=== PATIENT | male | born 1975 | race African-American/Black ===

== ENCOUNTER 2022-05-25 14:53 | Emergency (ER) | payer SELFPAY ==
[2022-05-25 14:54] VITALS: BP 163/120; PULSE 63; RESP 16; TEMP 36.6; O2SAT 100; BMI 23.3
--- NOTE | 2022-05-25 15:12 | ED.RN ---
BRANCH FELL ON PT'S HEAD IN YARD. LOC. NO SENSE OF TIME OR WATCH TO DETERMINE LENGTH OF LOC. DIFFICULTY W/AMBULATION TO GET INTO HOUSE. FALLING FREQUENTLY. NEW ONSET GENERALIZED TREMORS. HEAD/NECK/ABD PAIN W/N/V AND DIZZINESS.
--- NOTE | 2022-05-25 15:13 | EX.ED.GENINJ ---
HPI History of Present Illness Chief Complaint: Head Injury Narrative Narrative: 46-year-old male here with head injury. States a tree limb hit him in the head. He lost consciousness and has been vomiting. Denies blood thinners. PFSH PFSH Medical History no medical history Home Medications pantoprazole 40 mg tablet,delayed release 40 mg PO DAILY ##30 04/27/15 [Rx Last Taken Unknown] hydrochlorothiazide 25 mg tablet 25 mg PO DAILY ##30 03/27/16 [Rx Last Taken Unknown] meclizine 25 mg tablet 25 mg PO TID PRN PRN Dizziness #15 tabs 03/27/16 [Rx Last Taken Unknown] ondansetron 4 mg disintegrating tablet 4 mg PO Q8H PRN PRN Nausea #10 tabs 05/25/22 [Rx Last Taken Unknown] Allergy/AdvReac Type Severity Reaction Status Date / Time No Known Allergies Allergy Verified 05/25/22 14:53 Surgical History no surgical history Social History Smoking Status: Former smoker ROS ROS ED ROS Narrative Constitutional: Denies fever HEENT: Denies sore throat Neck: Denies neck pain Cardiovascular: Denies chest pain, syncope Respiratory: Denies shortness of breath GI: Endorses nausea and vomiting : Denies changes in urinary habits Musculoskeletal: Denies muscle or joint pain Neurologic: Endorses dizziness, headache Skin denies rash EXAM Physical Exam Narrative Exam Narrative: Primary Survey Airway: Intact Breathing: Bilateral breath sounds Circulation: Palpable bilateral femorals, Palpable bilateral radial, Palpable bilateral DP and Palpable bilateral PT Disability / Spine precautions GCS Score: Eye Openin Verbal Response: 5 Motor Response: 6 Secondary Survey Constitutional: Please see MDM Head: Atraumatic, Midface stable, NO jaw malocclusion, No Cephalohematoma, and No Lacerations noted Eye: Pupils equal round and reactive to light, Extraocular muscles intact and No periorbital ecchymosis or stepoff, no evidence of entrapment ENT: Oropharynx clear, no lacerations, no hemotympanum, no raccoon eyes or hernandez sign Cervical spine / Neck: No cervical spine bony tenderness, crepitance, or stepoff deformity Trachea midline Lungs: Clear to auscultation, No asymmetric rise and No crepitus, no flail chest Cardiac: Regular rate and rhythm and No murmurs Abdomen: Soft, Nontender and No rebound Pelvis: Pelvis stable to compression : No evidence of genital injury Back: No midline bony tenderness to thoracic/lumbar/sacral spines Neuro: Alert and oriented x3, neuro exam at baseline, cranial nerves II through XII are intact. No pain with extraocular muscle movement. There is negative test of skew. Normal speech. 5 of 5 strength in upper and lower extremities in flexion extension. Intact sensation to light touch in upper and lower extremity dermatomes. No truncal or extremity ataxia. No dysdiadochokinesia. Normal gait. 2+ reflexes. No meningeal signs. Negative Babinski. NIH of 0 Extremities: NO gross Deformities Psych: Normal affect Nursing triage notes reviewed, Vital signs reviewed Const Vital Signs: 05/25/22 14:54 05/25/22 15:05 05/25/22 15:55 Temperature 97.8 F Temperature Source Temporal Pulse Rate 63 71 Respiratory Rate 16 18 Blood Pressure 163/120 H 133/106 H Blood Pressure Mean 134 115 Pulse Ox 100 100 Oxygen Delivery Method Room Air Room Air Room Air 05/25/22 16:08 Temperature Temperature Source Pulse Rate 73 Respiratory Rate 12 Blood Pressure 138/100 H Blood Pressure Mean 112 Pulse Ox 100 Oxygen Delivery Method Room Air MDM MDM MDM Narrative Medical decision making narrative: Chief Complaint: Head injury External records reviewed: Brain CT from 2017 shows no acute intracranial normalities I considered the following differential diagnosis: Intracranial injury, concussion, neck injury Imaging negative for acute traumatic injury patient is likely some from a concussion. Will give symptomatic Zofran for home-going and close head injury instructions. Factors affecting care: History of hypertension Social determinants of health: Tobacco use History obtained from others: None Shared decision making: I will have a discussion with the patient and or visitors regarding risk/benefits of further testing or admission. They will be made aware of of the risk/benefits inherent in this decision they will be given the opportunity to voice understanding. Consults: Radiology discussed read, reviewed over the read for second time Radiography Diagnostic Testing: Clinical Impression(s) from Imaging Studies Brain CT 05/25/22 15:40 IMPRESSION: Negative head/brain CT without intravenous contrast. Electronically Signed: Brayden Fuller MD at 15:57 EDT , Cervical Spine CT 05/25/22 15:40 IMPRESSION: Degenerative changes of the cervical spine. There are no acute findings. Electronically Signed: Brayden Fuller MD at 16:16 EDT , Treatment and Re-Evaluation Narrative: Tertiary exam without new traumatic injuries Discharge Plan Triage Chief Complaint: Head Injury ED Provider: Alex Tang Dx/Rx/DC Orders Clinical Impression: CHI (closed head injury) Instructions: After a Concussion Prescriptions: New ondansetron 4 mg tablet,disintegrating 4 mg PO Q8H PRN PRN (Reason: Nausea) Qty: 10 0RF No Action pantoprazole 40 MG tablet 40 mg PO DAILY Qty: 30 0RF hydrochlorothiazide 25 MG tablet 25 mg PO DAILY Qty: 30 0RF meclizine 25 MG tablet 25 mg PO TID PRN PRN (Reason: Dizziness) Qty: 15 0RF Stand Alone Forms: ED Work / School Excuse Primary Care Provider: Aj Colindres Referrals: Aj Colindres MD [Primary Care Provider] - Activity Restrictions/Additional Instructions: Please take Tylenol, ibuprofen every 6 hours as needed for fever and pain control. Please take Zofran as prescribed. Please return if cannot tolerate medicine by mouth or if you develop new or worsening symptoms. Disposition Disposition: Home, Self Care
[2022-05-25] MEDS: Ondansetron 4 MG/2 ML Vial IV (15:31)
--- NOTE | 2022-05-25 15:40 | CT_ITS ---
EXAM: CT SPINE - CERVICAL WITHOUT IV REASON FOR EXAM: Male, 46 years old. NECK PAIN neck trauma r/o c-spine injury HISTORY: NECK PAIN neck trauma r/o c-spine injury Individualized dose optimization techniques were used for this CT. TECHNIQUE: Multiplanar images were obtained of the cervical spine. IV contrast was not utilized. COMPARISON: None. FINDINGS: The vertebral bodies do maintain their height. The odontoid process is intact. No pre-vertebral soft tissue swelling is seen. The intravertebral disc height is lost. There are scattered lymph nodes in the neck. There are degenerative changes of the osseous structures. There is bilateral facet arthropathy. There are scattered levels of foraminal stenosis. There are vascular calcifications. CT/Spine Cervical without Contras IMPRESSION: Degenerative changes of the cervical spine. There are no acute findings. Electronically Signed: Brayden Fuller MD at 16:16 EDT Reading Location ID and State: [facility] / [place] , Service support ,
--- NOTE | 2022-05-25 15:40 | CT_ITS ---
EXAM: CT HEAD WITHOUT INTRAVENOUS CONTRAST CLINICAL INDICATION: head trauma, vomiting r/o ICH TECHNIQUE: Multiple axial images were obtained of the head without intravenous contrast. This CT exam was performed using one or more of the following dose reduction techniques: automated exposure control, adjustment of the mA and/or kV according to patient size, and/or use of iterative reconstruction technique. This report was created using [employer] report generation technology. RADIATION DOSE: CTDIvol = 44.99 mGy, DLP = 829.85 mGy-cm COMPARISON: 2.14.17. FINDINGS: BRAIN AND EXTRA-AXIAL SPACES: Unremarkable. No intra- or extra-axial hemorrhage. No evidence of acute infarct. No intracranial mass or mass effect. There is preservation of the hobbs/white matter interface. Posterior fossa structures are unremarkable. Ventricles are appropriate for age. No hydrocephalus. Basal cisterns are patent. BONES/JOINTS: Unremarkable. No discrete lytic or blastic abnormalities. SINUSES: Unremarkable as visualized. Clear. MASTOID AIR CELLS: Unremarkable. Clear. ORBITS: Visualized globes, extraocular muscles, optic nerves and retrobulbar fat appear unremarkable. CT/Brain/Head without Contrast IMPRESSION: Negative head/brain CT without intravenous contrast. Electronically Signed: Brayden Fuller MD at 15:57 EDT ,
[2022-05-25 15:55] VITALS: BP 133/106; PULSE 71; RESP 18; O2SAT 100
[2022-05-25 16:08] VITALS: BP 138/100; PULSE 73; RESP 12; O2SAT 100
[2022-05-25 16:53] VITALS: BP 135/100; PULSE 64; RESP 19; O2SAT 99
== END 2022-05-25 16:59 | disposition home or self-care (01) ==
PROVIDERS: Emergency Provider Emergency Medicine; PCP Family Medicine; Visit Provider Emergency Medicine
DX: S09.90XA Unspecified injury of head, initial encounter (principal); Z87.891 Personal history of nicotine dependence; I10 Essential (primary) hypertension; W22.8XXA Striking against or struck by other objects, initial encounter
CPT/HCPCS: 70450; 72125; 99284; J7030; J7040; A4216; J2405

== ENCOUNTER 2023-10-09 09:42 | Emergency (ER) | payer SELFPAY ==
[2023-10-09 09:42] VITALS: BP 107/84; PULSE 76; RESP 16; TEMP 36.4; O2SAT 100; BMI 22.4
--- NOTE | 2023-10-09 09:52 | EDS_ITS ---
HPI History of Present Illness Chief Complaint: Abd Pain PFSH PFSH Home Medications ?Medication ?Instructions ?Recorded ?Last Taken ?Type ondansetron 4 mg disintegrating 4 mg PO Q8H PRN PRN Nausea #10 tabs 10/09/23 Unknown Rx tablet Allergy/AdvReac Type Severity Reaction Status Date / Time No Known Allergies Allergy Verified 10/09/23 09:45 Social History Smoking Status: Former smoker EXAM Physical Exam Const Vital Signs: 10/09/23 09:42 10/09/23 11:42 Temperature 97.5 F L Temperature Source Temporal Pulse Rate 76 76 Respiratory Rate 16 18 Blood Pressure 107/84 H 110/77 Blood Pressure Mean 91 88 Pulse Ox 100 98 Oxygen Delivery Method Room Air Room Air MDM [facility] MDM Narrative Medical decision making narrative: HISTORY OF PRESENT ILLNESS: 48-year-old male presents with concern for abdominal pain diarrhea and generally not feeling well. He states this began yesterday and is covered by diarrhea. Notes 1 episode of nonbloody nonbilious vomitus prior to arrival. Denies history abdominal surgery. Denies any urinary complaint such as frequency urgency hematuria, dysuria. Last bowel movement was yesterday. No melena or hematochezia. No other bleeding diathesis noted. Denies sick contacts. Denies cough fever chills. No chest pain or shortness of breath. REVIEW OF SYSTEMS: Pertinent positives: Abdominal pain, diarrhea Pertinent negatives: As per HPI PHYSICAL EXAM: Nursing triage notes reviewed, Vital signs reviewed Constitutional: please see [facility] HENT: MMM Eyes: Pupils equal round and reactive to light, Extraocular muscles intact Neck: No stridor, no JVD, full neck ROM Lungs: Clear to auscultation, No wheezing or rales. No increased work of breathing, no conversational dyspnea, no accessory muscle use, no nasal flaring. No respiratory distress noted Heart: Regular rate and rhythm, No murmurs, No rubs and No gallops, 2+ distal pulses (radial, femoral, posterior tibial) in all extremities Abdomen: Soft, diffuse tenderness, rigidity, rebound or guarding, no obvious peritoneal signs, no palpable pulsatile abdominal masses, no auscultated abd ominal bruit : Left CVAT noted Extremities: No edema Neuro: No focal neurological deficits, cranial nerves II through XII intact, 5/5 strength in all extremities. Intact sensation to light touch in all extremities, 2+ reflexes bilateral patella tendons. Normal gait. No ataxia. Skin: No rash or lesions noted MEDICAL DECISION MAKING: Chief Complaint: Abdominal pain diarrhea External records reviewed: Prior imaging reviewed: No recent advanced imaging the abdomen or pelvis Factors affecting care: GERD Social determinants of health: Denies recent alcohol. Notes history of alcohol use 2 years ago. History obtained from others: Consults: none at this time MDM Narrative: Patient was initially hemodynamically stable, afebrile, saturating 100% on room air. Exam with diffusely tender abdomen and left CVA tenderness I considered the following differential diagnosis: Perforation, obstruction, acute appendicitis, pyelonephritis, UTI, nephrolithiasis, AAA, pancreatitis, hepatobiliary obstruction, I obtained a broad lab and imaging workup to further elucidate the etiology of patient's complaint specifically ruling out signs of acute surgical processes in the abdomen as well as signs of intra-abdominal organ dysfunction. I treated the patient initially 1 L normal saline for resuscitation, 4 mg of IV Zofran for nausea control, and 15 mg of IV Toradol for pain control. ALL IMAGES (IF OBTAINED) HAVE BEEN PERSONALLY REVIEWED AND INTERPRETED BY MYSELF. CBC without leukocytosis, severe anemia, no thrombocytopenia. Lipase is wnl indicating no pancreatic inflammation. CMP without evidence of acute kidney injury, significant electrolyte abnormality, anion gap, no evidence hepatobiliary pathology. CT scan of the abdomen pelvis is negative for acute intra-abdominal pathology such as obstruction perforation does note liver cyst. Incidental findings communicated with the patient. The synthesis of the patient's history, physical exam, labs images suggest no acute life-limiting intra-abdominal pathology. I see nothing that would suggest an acute abdomen at this time. Based on history physical exam, risk factors, I have a low for acute surgical abdominal pathology, is very low. There is no evidence of peritonitis sepsis or toxicity at this time. I feel the patient can be managed as an outpatient with follow-up with her primary physician in the next 24 to 48 hours or soon as possible. Instructions have been given for the patient to return to the ED for worsening pain, anorexia, high fevers, intractable vomiting or bleeding. The patient and/or family, caregivers express understanding. The patient and/or family, caregivers agrees with the plan. Shared decision making: I will have a discussion with the patient and or visitors regarding risk/benefits of further testing or admission. They will be made aware of of the risk/benefits inherent in this decision they will be given the opportunity to voice understanding. Total critical care time today provided was at least 0 minutes. This excludes separately billable procedures. Critical care time (if documented) is secondary to the patient having high probability of clinically significant/life threatening deterioration in the patient's condition which required my urgent intervention. Impression: 1. Abdominal pain 2. Liver cyst Dispo: Discharge This note was generated with [employer] dictation software. It may contain incorrect words, spelling, and punctuation that were not noted in review of the chart prior to signing. Lab Data Labs: Laboratory Results - last 24 hr 10/09/23 10:15 WBC 8.3 RBC 5.10 Hgb 14.3 Hct 41.6 MCV 81.6 MCH 28.0 MCHC 34.4 RDW Std Deviation 41.4 RDW Coeff of Clary 14.3 Plt Count 233 MPV 9.4 Immature Gran % (Auto) 0.200 Neut % (Auto) 56.0 Lymph % (Auto) 29.0 Comal % (Auto) 11.6 H Eos % (Auto) 2.4 Baso % (Auto) 0.8 Absolute Neuts (auto) 4.7 Absolute Lymphs (auto) 2.41 Nucleated RBC % 0 Sodium 139 Potassium 4.4 Chloride 107 Carbon Dioxide 30.0 Anion Gap 2 L BUN 17 Creatinine 1.14 Estim Creat Clear Calc 76.29 Est GFR (MDRD) Af Amer 88 Est GFR (MDRD) Non-Af 73 BUN/Creatinine Ratio 14.9 Glucose 86 Calcium 9.3 Total Bilirubin 0.30 AST 18 ALT 7 L Alkaline Phosphatase 93 Total Protein 7.5 Albumin 3.4 Globulin 4.1 Albumin/Globulin Ratio 0.8 L Lipase 46 Radiography Diagnostic Testing: Clinical Impression(s) from Imaging Studies Abdomen/Pelvis CT 10/09/23 10:05 IMPRESSION: Diffuse bladder wall thickening. Findings suggesting a 1.3 cm cyst in the inferior medial aspect of the right lobe of the liver. Sigmoid diverticulosis. Electronically Signed: Mike Penaloza MD at 12:13 EDT , Discharge Plan Triage Chief Complaint: Abd Pain ED Provider: Alex Tang Dx/Rx/DC Orders Clinical Impression: Abdominal pain Instructions: ED Abdominal Pain Unkn Cause Male... Prescriptions: New ondansetron 4 mg tablet,disintegrating 4 mg PO Q8H PRN PRN (Reason: Nausea) Qty: 10 0RF Primary Care Provider: Aj Colindres Referrals: Aj Colindrse MD [Primary Care Provider] - Activity Restrictions/Additional Instructions: Thank you for trusting us with your care today! Your labs images were overall unremarkable. Your CT scan showed no evidence of any acute intra-abdominal pathology that would require surgery or hospitalization today. Please take Zofran as needed for nausea and vomiting. Please increase your oral fluid intake I recommend Body Armor, Pedialyte or Gatorade. Incidentally we found a cyst in your liver. This is unexplained at this time but will require repeat evaluation through your PCP with an ultrasound another CT scan to assess if it is changing or more concerning. Please take Tylenol (2 pills, 650 mg), ibuprofen (2 pills, 400 mg) every 6 hours as needed for pain and fever control. Please return to the emergency department if your symptoms change or worsen. Please follow with your primary care physician for further outpatient evaluation and management. Print Language: Uzbek Disposition Disposition: Home, Self Care
--- NOTE | 2023-10-09 10:05 | CT_ITS ---
STUDY: CT ABDOMEN AND PELVIS WITH CONTRAST REASON FOR EXAM: Male, 48 years old. Diffuse abdominal pain RADIATION DOSAGE (If Supplied By Facility): CTDIvol = ( 12.1 ) mGy, DLP = ( 368.48 ) mGycm TECHNIQUE: Transaxial images were obtained from the dome of the diaphragm to the symphysis pubis without oral contrast. IV 100mL Isovue-300 was administered. Sagittal and coronal images were reconstructed. Individualized dose optimization techniques were used for this CT. COMPARISON: Comparison is made with prior study of June 29, 2012. FINDINGS: Minimal degree of dependent bibasilar atelectasis. The visualized portions of the heart are within normal limits. There is a 1.3 cm cyst in the inferior medial aspect of the right lobe of the liver. Normal gallbladder and extrahepatic biliary system. Normal spleen. Normal pancreas. Normal bilateral adrenal glands. Normal right kidney. Normal left kidney. Normal visualized stomach. Normal small intestine. There are multiple colonic diverticula consistent with diverticulosis. The appendix is visualized and appears normal. Normal abdominal aorta. Normal inferior vena cava. Normal retroperitoneum. There is diffuse bladder wall thickening. Normal abdominal wall. Disc space narrowing and spondylosis at the L5-S1 level as well as at the L1-L2 level. CT/Abdomen/Pelvis W IV Cont ONLY IMPRESSION: Diffuse bladder wall thickening. Findings suggesting a 1.3 cm cyst in the inferior medial aspect of the right lobe of the liver. Sigmoid diverticulosis. Electronically Signed: Mike Penaloza MD at 12:13 EDT ,
[2023-10-09 10:25] LABS: Absolute Lymphocyte Count 2.41 X10^3/uL (0.83-4.51); Absolute Neutrophil Count 4.7 X10^3/uL (2.0-7.7); Basophil# 0.07 X10^3/uL; Basophil% 0.8 % (0-1); Eosinophils% 2.4 % (0-5); Hematocrit 41.6 % (40-54); Hemoglobin 14.3 g/dL (13.0-16.5); Lymphocyte # 2.41 X10^3/ul (0.83-4.51); Mean Corp Hgb Conc 34.4 g/dL (32-36); Mean Corpuscular Volume 81.6 fL (80-94); Mean Platelet Vol. 9.4 fl (6.2-12.0); Monocyte# 0.96 X10^3/uL; Monocyte% 11.6 % (0-10); NRBC Flagged by Analyzer 0 % (0-5); Neutrophil # 4.65 X10^3/uL (2.7-7.7); Platelet Count 233 K/mm3 (150-450); RBC Distribution Width CV 14.3 % (11.6-14.6); RBC Distribution Width SD 41.4 fl (35.1-43.9); White Blood Count 8.3 K/mm3 (4.4-11.0)
[2023-10-09] MEDS: Ondansetron 4 MG/2 ML Vial IV (10:27)
[2023-10-09] MEDS: Ketorolac 15 MG/ML Vial IV (10:27)
[2023-10-09] MEDS: 0.9% Normal Saline (1000mL) 1,000 ML 999 ML IV (10:27)
[2023-10-09 11:32] LABS: ALB/GLOB Ratio 0.8 RATIO (0.9-2.4); AST(SGOT) 18 U/L (15-37); Alanine Aminotransfer ALT/SGPT 7 U/L (16-61); Albumin, Serum 3.4 g/dL (3.2-5.0); Alkaline Phosphatase 93 U/L (45-117); Anion Gap 2 (5-15); BUN 17 mg/dL (7-18); BUN/Creat Ratio 14.9 RATIO (10-20); Calcium,Total 9.3 mg/dL (8.5-10.1); Chloride 107 mmol/L (98-107); Creatinine, Serum 1.14 mg/dL (0.70-1.30); EST Glomerular Filtration Rate 73 mL/min (>60); Est Glom Filt Rate - Afr Amer 88 mL/min (>60); Estimated Creatinine Clearance 76.29 ml/min; Globulin 4.1 g/dL (2.2-4.2); Glucose 86 mg/dL (74-106); Lipase 46 U/L (13-75); Potassium 4.4 mmol/L (3.5-5.1); Protein, Total 7.5 g/dL (6.4-8.2); Sodium Level 139 mmol/L (136-145)
[2023-10-09 11:42] VITALS: BP 110/77; PULSE 76; RESP 18; O2SAT 98
[2023-10-09 12:56] VITALS: BP 104/82; PULSE 71; RESP 18; TEMP 36.3; O2SAT 99
[2023-10-09 13:00] VITALS: BP 104/82; PULSE 71; RESP 18; O2SAT 98
== END 2023-10-09 13:12 | disposition home or self-care (01) ==
PROVIDERS: Emergency Provider Emergency Medicine; PCP Family Medicine; Visit Provider Emergency Medicine
DX: R10.9 Unspecified abdominal pain (principal); K76.89 Other specified diseases of liver; Z87.891 Personal history of nicotine dependence
CPT/HCPCS: 74177; 80053; 83690; 85025; 96361; 96374; 96375; 99283; J7030; Q9967; A4216; J2405

== ENCOUNTER 2023-10-11 22:53 | Emergency (ER) | payer SELFPAY ==
[2023-10-11 22:54] VITALS: BP 132/92; PULSE 66; RESP 15; TEMP 36.3; O2SAT 100; BMI 22.1
--- NOTE | 2023-10-11 23:46 | EDS_ITS ---
HPI History of Present Illness Chief Complaint: Eye Problem Informant: patient and spouse/S.O. Narrative Narrative: Patient has had 4 days of gradual onset redness and swelling of the left eye that started more temporally. Today he has developed gradual onset of headache, photophobia, and the feeling like there may be something in his eye. Some trouble focusing but no gross changes in vision or visual cristina. He wears no glasses or contacts. No fevers or chills. No purulent discharge. No URI symptoms recently. No injury to the eye that he knows of. [facility] Medical History Colitis Home Medications ?Medication ?Instructions ?Recorded ?Last Taken ?Type ondansetron 4 mg disintegrating 4 mg PO Q8H PRN PRN Nausea #10 tabs 10/09/23 Unknown Rx tablet ofloxacin 0.3 % eye drops See Rx Instructions EACH EYE 10/12/23 Unknown Rx .COMPLEX #5 mL Allergy/AdvReac Type Severity Reaction Status Date / Time No Known Allergies Allergy Verified 10/11/23 22:56 Family History no significant family his Social History household members: spouse Smoking Status: Former smoker ROS ROS ED Constitutional Constitutional ED: Denies chills or fever(s) Eyes Eyes: Reports as per HPI and eye pain ENT ENT ED: Denies ear pain, rhinorrhea or sore throat Gastrointestinal Gastrointestinal: Denies nausea or vomiting Neurologic Neurologic: Reports headache(s); Denies paresthesias or weakness EXAM Physical Exam Const Vital Signs: 10/11/23 22:54 Temperature 97.4 F L Temperature Source Temporal Pulse Rate 66 Respiratory Rate 15 Blood Pressure 132/92 H Blood Pressure Mean 105 Pulse Ox 100 Oxygen Delivery Method Room Air Positive well nourished and well developed General Appearance ED: well developed and NAD HEENT HEENT Narrative: Left eye: There is mild palpebral conjunctival swelling there is no periorbital swelling/tenderness to suggest preseptal cellulitis. There is significant photophobia with resultant blepharospasm limiting exam initially. There is diffuse scleral/conjunctival bulbar injection. No enophthalmos or proptosis. The right eye is unremarkable. atraumatic; Negative for tenderness Mouth ED: Yes oral and palatal mucosa normal and Yes lips normal Mouth: oral and palatal mucosa normal and lips normal Eyes PERRL and EOMs intact bilaterally Neuro oriented x3, CN's II-XII intact bilaterally and gait normal Sensorium / Orientation: alert Skin Lesions: no lesions Rashes: no rashes MDM MDM MDM Narrative Medical decision making narrative: Patient did have some significant improvement with tetracaine although not all the pain is gone. I checked eye pressures with a Bhanu-Pen, pressures measuring 26 with multiple checks less than 5% error. This is inconsistent with acute angle-closure glaucoma. I also did a slit-lamp exam. There is no hypopyon or hyphema the anterior chambers deep and quiet, stained with fluorescein negative Radha sign no dye uptake of the cornea or focal lesions or foreign bodies. He does have some mucus floating on the surface of the cornea that moves when he blinks, suggestive of an infection, but the rest of his symptoms in context of the above pressures are suggestive of iritis as well. Scleritis and episcleritis I think are in the differential as well. I think he needs follow- up with ophthalmology but it is Saturday night/Saturday morning of a holiday weekend. Therefore I discussed with the split and drum room supervisor on-call. He will see the patient in the morning at 9:30 AM. Management Discussion w/another healthcare provider: Fishing Tool Operator (ophtho Dr. Aguilar) Discharge Plan Triage Chief Complaint: Eye Problem ED Provider: Raúl Schaefer Dx/Rx/DC Orders Clinical Impression: Acute left eye pain Instructions: Red Eye Infection Tx, ED Iritis Prescriptions: New ofloxacin 0.3 % drops See Rx Instructions .ROUTE .COMPLEX Qty: 5 0RF Rx Instructions: put 1-2 drps into affected eye(s) every 2-4 h No Action ondansetron 4 mg tablet,disintegrating 4 mg PO Q8H PRN PRN (Reason: Nausea) Qty: 10 0RF Primary Care Provider: Aj Colindres Referrals: Aj Colindres MD [Primary Care Provider] - Stevie Aguilar MD [Med Staff - Active Staff] - 10/12/23 9:30 am Print Language: Ukrainian Disposition Disposition: Home, Self Care
[2023-10-12] MEDS: Tetracaine 0.5% Ophthalmic Bottle 2 DRP LEFT EYE (00:13)
[2023-10-12] MEDS: Fluorescein 1 MG STRIP 1 STRIP LEFT EYE (00:13)
== END 2023-10-12 02:34 | disposition home or self-care (01) ==
PROVIDERS: Emergency Provider Emergency Medicine; PCP Family Medicine; Visit Provider Emergency Medicine
DX: H57.12 Ocular pain, left eye (principal); Z87.891 Personal history of nicotine dependence
CPT/HCPCS: 99283

== ENCOUNTER 2024-07-17 09:05 | Emergency (ER) | payer SELFPAY ==
[2024-07-17 09:06] VITALS: BP 142/103; PULSE 93; RESP 14; TEMP 36.1; O2SAT 98; BMI 22.8
[2024-07-17] MEDS: Morphine 4 MG/ML Syringe IV (09:39)
[2024-07-17] MEDS: Ondansetron 4 MG/2 ML Vial IV (09:39)
[2024-07-17] MEDS: Ketorolac 15 MG/ML Vial IV (09:39)
[2024-07-17] MEDS: diazePAM 5 MG Tablet 2.5 MG PO (09:39)
--- NOTE | 2024-07-17 09:44 | EDS_ITS ---
HPI History of Present Illness Chief Complaint: Back Detail of Chief Complaint: Right lower back pain radiating to the groin and posterior mid thigh. Informant: patient and spouse/S.O. Onset/Context/Timing Onset: Weeks (Onset 2 to 3 weeks ago) Context: Sudden Onset Injury: - (Patient states pain started all of a sudden. He had not done any lifting bending etc.) Timing: Intermittent Quality: Aching Location: Lumbar, Buttock and Right Leg Current Severity: Moderate Maximum Severity: Severe Worsened by: improves with Movement, Ambulation and Bending Relieved by: Nothing Associated Symptoms Associated Symptoms: Radiation to Right Leg and - (He denies saddle paresthesia anesthesia. Denies buckling of his knees going up or down steps or dragging his foot when he ambulates.); Negative for Numbness, Tingling, Radiation to Left Leg, Fever, Abdominal Pain, Dysuria, Unable to Ambulate, Unable to Transfer, Urinary Retention, Urinary Incontinence, Constipation or Fecal Incontinence Narrative Narrative: Patient is a 49-year-old male. He presents because of worsening right lower back pain that radiates to the right inguinal area and posteriorly and stops before the popliteal fossa. Movement exacerbates his pain. Patient has been applying heat which has made it worse. He took [id number] back pain relief. According to it contains acetaminophen and ibuprofen. They do not know the doses of the acetaminophen or ibuprofen. Patient denies bowel bladder dysfunction. Patient [place] saddle paresthesia or an esthesia. Patient denies foot drop. Patient denies buckling of his knees going up or down steps. Movement exacerbates his pain. He had an appointment to see chiropractor. He states the pain was unbearable and presents to the emergency department. He denies recent dental procedure. Denies fever, chills or night sweats. Prior similar symptoms: No Recent Illness/[facility]: [facility] Medical History Colitis Home Medications ?Medication ?Instructions ?Recorded ?Last Taken ?Type ondansetron 4 mg disintegrating 4 mg PO Q8H PRN PRN Na usea #10 tabs 10/09/23 Unknown Rx tablet ciprofloxacin HCl 0.3 % eye drops See Rx Instructions EACH EYE 10/12/23 Unknown Rx .COMPLEX #5 mL Valium 2 mg tablet (diazepam) 2 mg PO TID PRN muscle s pasm 4 07/17/24 Unknown Rx days #10 tabs naproxen 500 mg tablet 500 mg PO BID #14 tabs 07/17 Unknown Rx oxycodone-acetaminophen 5 mg-325 1 tab PO Q6H PRN PRN Pain 3 days 07/17/24 Unknown Rx mg tablet #12 TABLETS Allergy/AdvReac Type Severity Reaction Status Date / Time No Known Allergies Allergy Verified 07/17/24 09:05 Social History household members: spouse Smoking Status: Former smoker ROS ROS ED Constitutional Constitutional ED: Denies chills, fever(s), subjective, sweats or weight loss Cardiovascular Cardiovascular: Denies chest pain or palpitations Respiratory/Chest Respiratory/Chest: Denies dyspnea or dyspnea on exertion Gastrointestinal Gastrointestinal: Denies abdominal pain, constipation, diarrhea, nausea or vomiting Genitourinary Genitourinary ED: Denies dysuria, hematuria or urinary frequency Musculoskeletal Musculoskeletal: Reports back pain Integumentary Denies rash Neurologic Neurologic: Denies weakness Hematologic/Lymphatic Hematologic/Lymphatic: Denies easy bleeding or easy bruising EXAM Physical Exam Const Vital Signs: 07/17/24 09:06 Temperature 96.9 F L Temperature Source Temporal Pulse Rate 93 Respiratory Rate 14 Blood Pressure 142/103 H Blood Pressure Mean 116 Pulse Ox 98 Oxygen Delivery Method Room Air Positive well nourished and well developed Constitutional Narrative: Patient appears uncomfortable. He has tears in his eyes. Blood pressure slightly elevated. He does not have history of hypertension. Suspect this is due to his pain. General Appearance ED: well developed; Negative for pallor HEENT HEENT Narrative: HEENT is grossly unremarkable. Eyes PERRL and EOMs intact bilaterally General Eye ED: Negative for pale conjunctiva or scleral icterus Neck no lymphadenopathy, supple and no JVD Resp normal respiratory effort and clear to auscultation bilaterally Cardio regular rate, regular rhythm, S1 normal heart sound, S2 normal heart sound and no murmurs GI normal to inspection, nondistended, normoactive bowel sounds, soft to palpation, non-tender, non-distended and no masses GI Narrative: There is no abdominal bruit or palpable or pulsatile mass. Inspection: Negative for abdominal distention Back/Spine Lumbar Spine / Lower Back: straight leg raise negative bilaterally Extremity normal to inspection and no clubbing, cyanosis or edema Neuro Neuro Narrative: Patient has abnormal sensation S1-L4 on the right side only. Deep Tendon Reflexes: Rt Patellar (L4): 2+, Lt Patellar (L4): 2+, Rt Ankle (S1): 2+ and Lt Ankle (S1): 2+ Deep Tendon Reflexes Back: Rt Patellar (L4): 2+, Lt Patellar (L4): 2+, Rt Ankle (S1): 2+ and Lt Ankle (S1): 2+ Plantar Reflex: Downgoing: bilateral (There is no clonus noted.) Psych mental status grossly normal Skin no rashes or lesions noted and no wounds General Skin Exam: Negative for jaundice or pallor MDM MDM MDM Narrative Medical decision making narrative: Patient's history and physical is not consistent with sciatica. With normal reflexes uncertain why patient has abnormal sensation S1-L4 on the right. There is no abnormal sensation L1. Patient has intact EHL. 5/5 plantar and dorsi flexion. Patient complained of pain with plantarflexion of his right foot. At this point he is unable to stand to have him ambulate and perform 1 legged squat right and left. Therefore will medicate patient and reassess in ambulate after appropriate pain control. Patient is able to move more freely. He still has some discomfort. Patient was able to stand. Gait was observed. He has no foot drop. He is able to perform 1 legged squat on the right side. In my opinion this is muscular pain. He was told he may have a herniated disc but that is not the cause of his pain at this time based on his history, physical findings. Treatment and Re-Evaluation Narrative: Documented under the MDM portion of the medical record Discharge Plan Triage Chief Complaint: Back ED Provider: Ramón Holman Dx/Rx/DC Orders Clinical Impression: Acute right-sided low back pain, Tobacco dependence, Elevated blood-pressure reading without diagnosis of hypertension Instructions: ED Back Pain (Acute or Chronic) Prescriptions: New oxycodone-acetaminophen 5-325 mg tablet 1 tab PO Q6H PRN PRN (Reason: Pain) 3 Days Qty: 12 0RF naproxen 500 mg tablet 500 mg PO BID Qty: 14 0RF diazepam [Valium] 2 mg tablet 2 mg PO TID PRN (Reason: muscle spasm) 4 Days Qty: 10 0RF No Action ciprofloxacin HCl 0.3 % drops See Rx Instructions .ROUTE .COMPLEX Qty: 5 0RF Rx Instructions: put 1-2 drps in affected eye(s) every 2hr up to 8 times/day ondansetron 4 mg tablet,disintegrating 4 mg PO Q8H PRN PRN (Reason: Nausea) Qty: 10 0RF Primary Care Provider: Aj Colindres Referrals: Aj Colindres MD [Primary Care Provider] - Print Language: Luxembourgish Disposition Disposition: Home, Self Care
[2024-07-17 10:32] VITALS: BP 132/94; PULSE 89; RESP 16; TEMP 36.4; O2SAT 99
== END 2024-07-17 10:33 | disposition home or self-care (01) ==
PROVIDERS: Emergency Provider Emergency Medicine; PCP Family Medicine; Visit Provider Emergency Medicine
DX: M54.50 Low back pain, unspecified (principal); R03.0 Elevated blood-pressure reading, without diagnosis of hypertension; M79.671 Pain in right foot; Z87.891 Personal history of nicotine dependence
CPT/HCPCS: 99283; A4216; J2405

== ENCOUNTER 2024-07-20 11:03 | Observation (INO) | payer OTHER, SELFPAY ==
[2024-07-20 11:03] VITALS: BP 150/105; PULSE 70; RESP 18; TEMP 36.6; O2SAT 99; BMI 23.0
--- NOTE | 2024-07-20 11:19 | EDS_ITS ---
HPI History of Present Illness Chief Complaint: Back Narrative Narrative: 49-year-old male presents with his because of intractable back pain that he has had for at least the last few days. Of note, he was seen 3 days ago in the emergency department and given narcotics which made him sick. He is not tolerating that. He does have history of a bulging disc. He has states that he was unable to walk today secondary to pain. He denies any fevers or chills, no loss of bowel or bladder, no saddle anesthesia. He has pain mainly on the right side radiating down to his foot. Once again, he is not tolerating narcotic pain medication and they present him with intractable pain with inability to stand or walk. [facility] Medical History Colitis Home Medications ?Medication ?Instructions ?Recorded ?Last Taken ?Type NK 07/20/24 Unknown History Allergy/AdvReac Type Severity Reaction Status Date / Time No Known Allergies Allergy Verified 07/20/24 11:03 Social History household members: spouse Smoking Status: Smoker, status unknown tobacco type: cigarettes ROS ROS ED ROS Narrative Review of systems positive for right low back pain radiating down to foot. No fevers or chills, no nausea or vomiting unless takes narcotics. No loss of bowel or bladder. No saddle anesthesia. No recent falls. This is the same pain he was experiencing few days ago. EXAM Physical Exam Narrative Exam Narrative: Afebrile. Vital signs noted. Nontoxic-appearing. Cardiovascular examination reveals a regular rate and rhythm. Lungs clear to auscultation bilaterally. Abdomen is soft and nontender. Patient is kneeling on the floor, hunched over onto the cot. Inspection of the back reveals no erythema, no vertebral point tenderness or bony step-off. Mild tenderness to palpation right sacroiliac joint. Questionable tenderness in sciatic notch. Initially, unable to perform good exam due to patient positioning, kneeling on the floor. Repeat examination shows patellar DTRs equal and symmetric. Const Vital Signs: 07/20/24 11:03 07/20/24 13:56 Temperature 97.8 F 98.7 F Temperature Source Temporal Pulse Rate 70 55 L Respiratory Rate 18 18 Blood Pressure 150/105 H 122/99 H Blood Pressure Mean 120 106 Pulse Ox 99 100 Oxygen Delivery Method Room Air MDM MDM MDM Narrative Medical decision making narrative: Differential diagnosis includes but not limited to lumbar radiculopathy versus spinal stenosis versus sciatica versus sacroiliitis. Patient has declined narcotic pain medication stating he does not tolerated. They requested Toradol and a muscle relaxer. He was given an intramuscular injection of Norflex as well as Toradol intravenously. I did review his prior ED visit and he had been given Valium as well as Percocet and naproxen. I discussed with them the possibility of observation to be placed in rehab as he has been unable to stand or walk and is having intractable back pain. I do not feel he requires stat MRI as I have low suspicion clinically for cauda equina syndrome. I reviewed his laboratory work and he has normal white count 7.5 with hemoglobin slightly hemoconcentrated at 16.8 with hematocrit 45.8, platelet count normal at 202. BMP is grossly unremarkable. Urinalysis negative for infection with 0-5 W BCs. I do not feel antibiotics are indicated. Repeat examination after Toradol and Norflex shows mild improvement. However, given his inability to even dress himself and ambulate, I discussed the patient with Dr. Rodríguez for observation on the medical surgical floor. Patient is in stable condition. History & Record Review Discussion w/independent historian: Patient and Family Lab Data Attestation: I reviewed the patient's lab results. Labs: Laboratory Results - last 24 hr 07/20/24 07/20/24 11:35 13:10 WBC 7.5 RBC 5.47 Hgb 16.8 H Hct 45.8 MCV 83.7 MCH 30.7 MCHC 36.7 H RDW Std Deviation 43.8 RDW Coeff of Clary 14.9 H Plt Count 202 MPV 9.3 Immature Gran % (Auto) 0.300 Neut % (Auto) 50.5 Lymph % (Auto) 34.0 Granite % (Auto) 11.7 H Eos % (Auto) 2.3 Baso % (Auto) 1.2 H Absolute Neuts (auto) 3.8 Absolute Lymphs (auto) 2.54 Nucleated RBC % 0 Sodium 140 Potassium 4.2 Chloride 105 Carbon Dioxide 25.2 Anion Gap 10 BUN 13 Creatinine 1.16 Estim Creat Clear Calc 76.19 Est GFR (MDRD) Non-Af 77 BUN/Creatinine Ratio 11.4 Glucose 74 Calcium 9.2 Urine Color Yellow Urine Clarity Clear Urine pH 7.0 Ur Specific Vance 1.010 Urine Protein 30 H Urine Glucose (UA) Normal Urine Ketones 5 H Urine Occult Blood Negative Urine Nitrite Negative Urine Bilirubin 1 H Urine Urobilinogen 4 H Ur Leukocyte Esterase 25 H Urine RBC 0 SEEN Urine WBC 0-5 SEEN Ur Squamous Epith Cells 0 SEEN Urine Bacteria 0 SEEN Urine Mucus 1+ Radiography Diagnostic Testing: Clinical Impression(s) from Imaging Studies Lumbar Spine CT 07/20/24 12:06 IMPRESSION: Multilevel disc space narrowing as described with the neural foraminal stenosis more prominent on the left side. Reading Location: [place] [address] Management Discussion w/another healthcare provider: Hospitalist (Dr. Rodríguez) Discharge Plan Dx/Rx/DC Orders Clinical Impression: Lumbar radicular pain, Intractable low back pain, Inability to perform activities of daily living Disposition Disposition: Acute Care Hospital [facility]
[2024-07-20] MEDS: Ketorolac 15 MG/ML Vial IV (11:31)
[2024-07-20] MEDS: Orphenadrine 60 MG/2 ML Ampul IM (11:32)
[2024-07-20 11:45] LABS: Absolute Lymphocyte Count 2.54 X10^3/uL (0.83-4.51); Absolute Neutrophil Count 3.8 X10^3/uL (2.0-7.7); Basophil# 0.09 X10^3/uL; Basophil% 1.2 % (0-1); Eosinophil# 0.17 X10^3/uL; Eosinophils% 2.3 % (0-5); Hematocrit 45.8 % (40-54); Hemoglobin 16.8 g/dL (13.0-16.5); Lymphocyte # 2.54 X10^3/ul (0.83-4.51); Mean Corp Hgb Conc 36.7 g/dL (32-36); Mean Corpuscular Hgb 30.7 pg (27.0-32.0); Mean Corpuscular Volume 83.7 fL (80-94); Mean Platelet Vol. 9.3 fl (6.2-12.0); Monocyte# 0.87 X10^3/uL; Monocyte% 11.7 % (0-10); NRBC Flagged by Analyzer 0 % (0-5); Neutrophil # 3.77 X10^3/uL (2.7-7.7); Neutrophil % 50.5 % (47-70); Platelet Count 202 K/mm3 (150-450); RBC Distribution Width CV 14.9 % (11.6-14.6); RBC Distribution Width SD 43.8 fl (35.1-43.9); Red Blood Count 5.47 M/mm3 (4.6-6.2); White Blood Count 7.5 K/mm3 (4.4-11.0)
--- NOTE | 2024-07-20 12:06 | CT_ITS ---
PROCEDURE: SPINE LUMBAR WITHOUT CONTRAST 07/20/2024 REASON FOR EXAM: Lower back and lower extremity pain. TECHNIQUE: Lumbar spine CT without contrast. Coronal and Sagittal reconstruction series were provided. One or more dose reduction techniques were used (e.g., Automated exposure control, adjustment of the mA and/or kV according to patient size, use of iterative reconstruction technique COMPARISON: None RADIATION DOSE SUMMARY: CTDlvol: 13.86 mGy DLP: 541.42 mGycm FINDINGS: Vertebrae: Endplate spondylosis. Alignment: Normal lordosis. L1-2: Mild degree of disc space narrowing. No significant stenosis seen. L2-3: Mild degree of disc space narrowing and anterior spondylosis. Facet joint osteoarthritis and hypertrophy. Bilateral neural foraminal stenosis more prominent on the left side. L3-4: Mild degree of disc space narrowing. Anterior spondylosis. Facet joint osteoarthritis worse on the left side. Posterior spondylosis causing a moderate degree of left neural foraminal stenosis. L4-5: Mild degree of disc space narrowing. Spondylosis. Facet joint osteoarthritis and hypertrophy. Mild diffuse posterior disc bulge. Bilateral neural foraminal stenosis. L5-S1: Marked degree of disc space narrowing. Spondylosis. Retrolisthesis of L5 on S1. Facet joint osteoarthritis. Sacrum: Unremarkable. Sigmoid diverticulosis. CT/Spine Lumbar without Contrast IMPRESSION: Multilevel disc space narrowing as described with the neural foraminal stenosis more prominent on the left side. Reading Location: [place] [address]
[2024-07-20 12:33] LABS: Anion Gap 10 (5-15); BUN 13 mg/dL (4-19); BUN/Creat Ratio 11.4 RATIO (10-20); Calcium,Total 9.2 mg/dL (7.6-11.0); Carbon Dioxide 25.2 mmol/L (21.0-32.0); Chloride 105 mmol/L (98-108); Creatinine, Serum 1.16 mg/dL (0.70-1.20); EST Glomerular Filtration Rate 77 (>60); Estimated Creatinine Clearance 76.19 ml/min (50-250); Glucose 74 mg/dL (70-99); Potassium 4.2 mmol/L (3.3-5.1); Sodium Level 140 mmol/L (133-145)
[2024-07-20 13:17] LABS: Bacteria 0 SEEN /hpf (None Seen); Red Blood Cells-Urine 0 SEEN /hpf (0-5); Squamous Epithelial Cells - UA 0 SEEN /hpf (0-5)
[2024-07-20 13:19] LABS: Color, Urine Yellow (Yellow); Glucose, Dipstick Normal (Normal); Ketone-Dipstick 5 mg/dl (Negative); Leukocyte Esterase-Dipstick 25 /ul (Negative); Nitrite-Dipstick Negative (Negative); Occult Blood-Urine Negative /ul (Negative); Protein-Dipstick 30 mg/dl (Negative); Urine Clarity Clear (Clear); Urine Urobilinogen 4 mg/dl (Normal)
[2024-07-20 13:20] LABS: Urine Bilirubin Dipstick 1 mg/dL (Negative)
[2024-07-20 13:25] LABS: Mucous, Urine 1+ /hpf (<or=2+); White Blood Cells 0-5 SEEN /hpf (0-5)
--- NOTE | 2024-07-20 13:45 | PCM.HP.STD ---
[facility] - General General Date of Admission: 07/20/24 Date of Service: 07/20/24 Chief Complaint: Worsening low back pain with radiculopathy and difficulty with ambulation HPI Narrative MARK CHRISTENSEN, is a 49 M who presented to [facility] ED on 07/20/2024 with worsening low back pain with radiculopathy and difficulty with ambulation. Patient has no significant past medical history. 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 Has had lower back issues in the past but no severe low back pain. He began to have low back pain about 3 weeks ago. States he initially felt it when he was reaching for something but it was only a mild pain at that time. No falls or other trauma. He has been taking [id number] pain medications at home and using a heating pack with minimal relief of pain. He was seen in the ED on 07/17 for this pain. Pain is worst in his right low back paraspinal muscles with radiation into his buttocks and down the back of his leg to his ankle. No saddle anesthesia or bowel or bladder incontinence. No imaging was done at that point and ED physician noted that patient had no significant gait issues. He was discharged home with short course of oxycodone?acetaminophen, naproxen and Valium. Over the weekend he took these medications but had significant GI upset with vomiting with the oxycodone?acetaminophen, so he has not taken that since Saturday. He came back in today with worsening pain and inability to ambulate due to significant pain with any movement. CT lumbar spine showed multilevel disc space narrowing with neural foraminal stenosis more prominent on the left side. Lab workup was benign. He was given a dose of IV Toradol and a Norflex IM injection into the low back. Hospitalist was then contacted for admission. I saw the patient at bedside in the ED, was present. Patient was sitting back in bed and conversing normally. Noted that he had mild to moderate improvement with the medications given thus far. Noted that he had been taking ibuprofen, acetaminophen and using lidocaine patch at home with essentially no relief. He did not want to take any opiate pain medications while here if possible. No other acute concerns at this time. [facility] Medical History Colitis Home Medications ?Medication ?Instructions ?Recorded ?Last Taken ?Type NK 07/20/24 Unknown History Allergy/AdvReac Type Severity Reaction Status Date / Time No Known Allergies Allergy Verified 07/20/24 11:03 Social History household members: spouse Smoking Status: Smoker, status unknown tobacco type: cigarettes ROS Constitutional Constitutional: Denies chills, fatigue, fever(s) or weakness Eyes Eyes: Denies change in vision Cardiovascular Cardiovascular: Denies chest pain Respiratory/Chest Respiratory/Chest: Denies shortness of breath at rest Gastrointestinal Gastrointestinal: Denies abdominal pain Genitourinary Genitourinary: Denies dysuria Musculoskeletal Musculoskeletal: Reports back pain Neurologic Neurologic: Reports abnormal gait, numbness and paresthesias; Denies dizziness, focal weakness or headache(s) Vital Signs Vital Signs Vital Signs: 07/20/24 11:03 Temperature 97.8 F Temperature Source Temporal Pulse Rate 70 Respiratory Rate 18 Blood Pressure 150/105 H Blood Pressure Mean 120 Pulse Ox 99 Oxygen Delivery Method Room Air Weight Weight: 70.76 kg Body Mass Index (BMI) 23.0 Physical Exam Const alert, oriented x3, no apparent distress, average body habitus, healthy appearing and well nourished Constitutional Narrative: Pleasant middle-age male, sitting back in bed fairly comfortably at rest but with moderate to severe pain with movement noted, otherwise conversing normally. General Appearance: cooperative, well kempt and well developed HEENT normocephalic, head/scalp atraumatic, hearing grossly normal bilaterally, nasal mucous membranes and turbinates normal and moist oral mucous membranes Eyes PERRL, EOMs intact bilaterally and conjunctivae normal Neck full ROM Chest inspection of chest normal Resp normal respiratory effort, normal air movement, no use of accessory muscles and clear to auscultation bilaterally Cardio regular rate, regular rhythm, no murmurs and peripheral pulses 2+ throughout GI normal to inspection, nondistended, normoactive bowel sounds, soft to palpation, non-tender and non-distended Back/Spine Back/Spine Narrative: Primarily right-sided lumbar paraspinal muscular tightness and tenderness to palpation noted. No spinal point tenderness noted. Extremity normal to inspection and no pedal edema Skin no rashes or lesions noted Neuro moves all extremities and no focal motor deficits Speech: speech normal Motor Exam: strength 5/5 throughout Psych mental status grossly normal Results Lab / Micro Data 07/20/24 11:35 07/20/24 11:35 Labs: Laboratory Results - last 24 hr 07/20/24 11:35: WBC 7.5, RBC 5.47, Hgb 16.8 H, Hct 45.8, MCV 83.7, MCH 30.7, MCHC 36.7 H, RDW Std Deviation 43.8, RDW Coeff of Clary 14.9 H, Plt Count 202, MPV 9.3, Immature Gran % (Auto) 0.300, Neut % (Auto) 50.5, Lymph % (Auto) 34.0, [place] % (Auto) 11.7 H, Eos % (Auto) 2.3, Baso % (Auto) 1.2 H, Absolute Neuts (auto) 3.8, Absolute Lymphs (auto) 2.54, Nucleated RBC % 0, Sodium 140, Potassium 4.2, Chloride 105, Carbon Dioxide 25.2, Anion Gap 10, BUN 13, Creatinine 1.16, Estim Creat Clear Calc 76.19, Est GFR (MDRD) Non-Af 77, BUN/Creatinine Ratio 11.4, Glucose 74, Calcium 9.2 07/20/24 13:10: Urine Color Yellow, Urine Clarity Clear, Urine pH 7.0, Ur Specific Kinder 1.010, Urine Protein 30 H, Urine Glucose (UA) Normal, Urine Ketones 5 H, Urine Occult Blood Negative, Urine Nitrite Negative, Urine Bilirubin 1 H, Urine Urobilinogen 4 H, Ur Leukocyte Esterase 25 H, Urine RBC 0 SEEN, Urine WBC 0-5 SEEN, Ur Squamous Epith Cells 0 SEEN, Urine Bacteria 0 SEEN, Urine Mucus 1+ Imaging Radiology Impression Lumbar Spine CT 07/20/24 12:06 IMPRESSION: Multilevel disc space narrowing as described with the neural foraminal stenosis more prominent on the left side. Reading Location: [facility]--1 Assessment & Plan Assessment/Plan (1) Intractable low back pain: (2) Inability to perform activities of daily living: PLAN: Plan Patient is a 49-year-old male who presented to [facility] ED on 07/20/2024 with worsening low back pain and difficulty with ambulation. 1. Acute intractable low back pain with difficulty with ambulation ? Admit under observation status to [facility]. Orthopedics and pain management consulted. PT/OT/case management consulted. Presented with worsening low back pain with radiculopathy for 3 weeks. No preceding trauma noted. CT lumbar spine on admit with multilevel degenerative changes with neuroforaminal stenosis more prominent on left side noted. Did not tolerate p.o. opiates well and is refusing opiate medications at this point. Was given an IM Norflex injection in the ED. Will treat with scheduled Tylenol, lidocaine patch, IV Toradol as needed and p.o. Flexeril as needed for now. Appreciate orthopedic and pain management recommendations. DVT prophylaxis: Lovenox CODE STATUS: Full code, verified Expected disposition: TBD Total clinical time spent by myself addressing the patient's medical issues, reviewing all the data, and collaborating with patient's care team: 55 minutes. Charges/Coding Visit Charges Inpatient E&M: 22576 Init Hosp L2
[2024-07-20 13:56] VITALS: BP 122/99; PULSE 55; RESP 18; TEMP 37.1; O2SAT 100
[2024-07-20 15:03] VITALS: BP 137/103; PULSE 89; RESP 16; O2SAT 100
--- NOTE | 2024-07-20 15:23 | CASEMGMT ---
Care Management Face to Face with patient for initial transition planning/care coordination assessment in the ED. This chart writer introduced self and role at [facility]. Patient alert and oriented. Patient willing to participate in assessment and is able to answer all questions appropriately. Care providers, pharmacy, and demographics verified. Admitting Diagnosis: Intractable low back pain, Inability to perform activities of daily living Other diagnosis history: bulging disc, colitis PCP: Aj Colindres Specialists: none Preferred Pharmacy: [facility] Insurance: [place] Prescription Benefit: yes Living Will/HPOA: none, but would like to complete while admitted LNOK: Charmaine lawrence Living Arrangements: with , 2 story home with 3 steps to enter, 11 steps between floors, independent at baseline Transportation: patient drives DME: none HHC: none SNF/Rehab: none Community Resources: none Patient goals: Patient wishes to discharge home, denies need for home health care at this time. Patient denies any further needs or concerns at this time. Disposition Plan: admission to acute; RN CM/SW to follow for discharge planning needs that may arise. Darlin Fam, DEHYDRATING PRESS OPERATOR, DIRECTOR OF DIRECT MARKETING
[2024-07-20] MEDS: Acetaminophen 500 MG Tablet 1000 MG PO ×2 (16:24→21:25)
[2024-07-20] MEDS: Lidocaine 5% Patch 1 PATCH TOPICAL (16:24)
[2024-07-20 16:27] VITALS: BMI 23.0
[2024-07-20 16:35] VITALS: BP 128/97; PULSE 61; RESP 18; TEMP 36.3; O2SAT 95
[2024-07-20 20:37] VITALS: BP 130/90; PULSE 65; RESP 16; TEMP 36.7; O2SAT 98
[2024-07-20] MEDS: MELATONIN 3 MG TABLET PO (23:36)
[2024-07-20 23:55] VITALS: BP 122/87; PULSE 55; RESP 16; TEMP 36.9; O2SAT 100
[2024-07-21] MEDS: Acetaminophen 500 MG Tablet 1000 MG PO ×3 (05:14→20:49)
[2024-07-21 05:19] VITALS: BP 119/83; PULSE 61; RESP 16; TEMP 36.4; O2SAT 100
[2024-07-21 06:10] LABS: Hematocrit 46.9 % (40-54); Hemoglobin 17.5 g/dL (13.0-16.5); Mean Corp Hgb Conc 37.3 g/dL (32-36); Mean Corpuscular Hgb 31.3 pg (27.0-32.0); Mean Corpuscular Volume 83.9 fL (80-94); Mean Platelet Vol. 9.8 fl (6.2-12.0); Platelet Count 196 K/mm3 (150-450); RBC Distribution Width CV 14.6 % (11.6-14.6); RBC Distribution Width SD 43.3 fl (35.1-43.9); Red Blood Count 5.59 M/mm3 (4.6-6.2); White Blood Count 6.4 K/mm3 (4.4-11.0)
[2024-07-21 06:45] LABS: Anion Gap 9 (5-15); BUN 19 mg/dL (4-19); Calcium,Total 8.7 mg/dL (7.6-11.0); Carbon Dioxide 25.4 mmol/L (21.0-32.0); Chloride 101 mmol/L (98-108); Creatinine, Serum 1.27 mg/dL (0.70-1.20); EST Glomerular Filtration Rate 69 (>60); Estimated Creatinine Clearance 69.59 ml/min (50-250); Glucose 91 mg/dL (70-99); Potassium 4.8 mmol/L (3.3-5.1); Sodium Level 135 mmol/L (133-145)
[2024-07-21 07:51] VITALS: BP 135/99; PULSE 70; RESP 18; TEMP 36.6; O2SAT 99
[2024-07-21 08:21] VITALS: O2SAT 98
--- NOTE | 2024-07-21 08:21 | CPS ---
Pt doesn't want to do i.s./pep x 2, order was discontinued.
--- NOTE | 2024-07-21 08:33 | PCM.CONS.GEN ---
Assessment & Plan Assessment/Plan (1) Lumbar radicular pain: PLAN: Per patient history, complaint, examination, labs and imaging there is no evidence of infection. CT scan shows multilevel degenerative changes and foraminal narrowing along with spondylolisthesis He hopes to avoid opioids 2/2 GI symptoms Given distribution of his pain, which appears to be in for dermatomal patterns I would prefer to have an MRI to best target transforaminal epidural steroid injection I discussed the case with Dr. Ruiz and the plan is to obtain an MRI to further evaluate his symptoms. NPO at midnight Plan for TFESI vs LESI Consider PO steroids Continue multimodal pain medication regimen, which has been helping HPI Consult Data Date of Consult: 07/21/24 HPI Narrative Reason for Consultation: Radiculopathy HPI Narrative: MARK CHRISTENSEN, is a 49 M presented to [facility] ED on 07/20/2024 with worsening low back pain with radiculopathy and difficulty with ambulation. He has had back pain for 20 years and occasionally has flares that last 1-2 weeks, but never like this. He has PMH of polycythemia. This severe flare up started several weeks ago while reaching for something. The pain is in the low back with radiation to the right lower extremity. It radiates along the posterolateral aspect of the leg to the ankle and also to the hip. He denies history of groin hernia. He has tried OTC medications and heat with limited benefit. Denies red flag symptoms, incontinence or saddle anesthesia. He went to the ED, but was initially sent home with some PRN pain medication: oxycodone?acetaminophen, naproxen and Valium, but returned as he developed GI upset with the percocet. He also noted difficulty with ambulation. CT lumbar spine was obtained and demonstrated showed multilevel disc space narrowing with neural foraminal stenosis more prominent on the left side. He has no evidence of infection per labs and imaging. [facility] Medical History Colitis Home Medications ?Medication ?Instructions ?Recorded ?Last Taken ?Type NK 07/20/24 Unknown History Allergy/AdvReac Type Severity Reaction Status Date / Time No Known Allergies Allergy Verified 07/20/24 11:03 Social History household members: spouse Smoking Status: Former smoker ROS Constitutional Constitutional: Denies chills, fatigue, fever(s) or weakness Eyes Eyes: Denies change in vision Cardiovascular Cardiovascular: Denies chest pain Respiratory/Chest Respiratory/Chest: Denies shortness of breath at rest Gastrointestinal Gastrointestinal: Denies abdominal pain Genitourinary Genitourinary: Denies dysuria Musculoskeletal Musculoskeletal: Reports back pain Neurologic Neurologic: Reports abnormal gait, numbness and paresthesias; Denies dizziness, focal weakness or headache(s) Physical Exam Narrative Lumbar paraspinal tenderness + bilaterally SLR + on the right + right sided Si tenderness. Hip provocative maneuvers negative Sensation intact 5/5 motor strength DTR 2/4 in the lower extremities Const alert, oriented x3, no apparent distress and well nourished Psych affect normal Lab / Micro Data 07/21/24 05:51 07/21/24 05:51 Labs: Laboratory Results - last 24 hr 07/20/24 11:35: WBC 7.5, RBC 5.47, Hgb 16.8 H, Hct 45.8, MCV 83.7, MCH 30.7, MCHC 36.7 H, RDW Std Deviation 43.8, RDW Coeff of Clary 14.9 H, Plt Count 202, MPV 9.3, Immature Gran % (Auto) 0.300, Neut % (Auto) 50.5, Lymph % (Auto) 34.0, [place] % (Auto) 11.7 H, Eos % (Auto) 2.3, Baso % (Auto) 1.2 H, Absolute Neuts (auto) 3.8, Absolute Lymphs (auto) 2.54, Nucleated RBC % 0, Sodium 140, Potassium 4.2, Chloride 105, Carbon Dioxide 25.2, Anion Gap 10, BUN 13, Creatinine 1.16, Estim Creat Clear Calc 76.19, Est GFR (MDRD) Non-Af 77, BUN/Creatinine Ratio 11.4, Glucose 74, Calcium 9.2 07/20/24 13:10: Urine Color Yellow, Urine Clarity Clear, Urine pH 7.0, Ur Specific [place] 1.010, Urine Protein 30 H, Urine Glucose (UA) Normal, Urine Ketones 5 H, Urine Occult Blood Negative, Urine Nitrite Negative, Urine Bilirubin 1 H, Urine Urobilinogen 4 H, Ur Leukocyte Esterase 25 H, Urine RBC 0 SEEN, Urine WBC 0-5 SEEN, Ur Squamous Epith Cells 0 SEEN, Urine Bacteria 0 SEEN, Urine Mucus 1+ 07/21/24 05:51: WBC 6.4, RBC 5.59, Hgb 17.5 H, Hct 46.9, MCV 83.9, MCH 31.3, MCHC 37.3 H, RDW Std Deviation 43.3, RDW Coeff of Clary 14.6, Plt Count 196, MPV 9.8, Sodium 135, Potassium 4.8, Chloride 101, Carbon Dioxide 25.4, Anion Gap 9, BUN 19, Creatinine 1.27 H, Estim Creat Clear Calc 69.59, Est GFR (MDRD) Non-Af 69, BUN/Creatinine Ratio 15.0, Glucose 91, Calcium 8.7 Imaging Radiology Impression Lumbar Spine CT 07/20/24 12:06 IMPRESSION: Multilevel disc space narrowing as described with the neural foraminal stenosis more prominent on the left side. Reading Location: [place] [id number]
--- NOTE | 2024-07-21 11:28 | CON.PCM.OR_ITS ---
Documented by User: LEOLA Diaz 07/21/24 11:35 HPI Consult Data Date of Consult: 07/21/24 HPI Narrative HPI Narrative: MARK CHRISTENSEN, is a 49 M who presented to [facility] ED on 07/20/2024 with worsening low back pain with radiculopathy and difficulty with ambulation. Patient has no significant past medical history. 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 Has had lower back issues in the past but no severe low back pain. He began to have low back pain about 3 weeks ago. States he initially felt it when he was reaching for something but it was only a mild pain at that time. No falls or other trauma. He has been taking [id number]-mtt-[id number] pain medications at home and using a heating pack with minimal relief of pain. He was seen in the ED on 07/17 for this pain. Pain is worst in his right low back paraspinal muscles with radiation into his buttocks and down the back of his leg to his ankle. No saddle anesthesia or bowel or bladder incontinence. No imaging was done at that point and ED physician noted that patient had no significant gait issues. He was discharged home with short course of oxycodone?acetaminophen, naproxen and Valium. Over the weekend he took these medications but had significant GI upset with vomiting with the oxycodone?acetaminophen, so he has not taken that since Saturday. He came back in today with worsening pain and inability to ambulate due to significant pain with any movement. CT lumbar spine showed multilevel disc space narrowing with neural foraminal stenosis more prominent on the left side. Lab workup was benign. He was given a dose of IV Toradol and a Norflex IM injection into the low back. Hospitalist was then contacted for admission. Patient says that prior to this acute onset now over a week ago he was having low back pain for a month. The patient says that he has had back pain in the past which typically last for several weeks before it improves. Patient says he has been dealing with these flares of pain for over 20 years. He says that typically his pain will radiate into his right groin. The pain that extends down his right leg down the back of the leg and stops at the lateral ankle is a new sensation that the patient has not experienced before. This back pain makes it difficult for the patient to ambulate. The patient says that the groin pain increases with coughing, he denies any hernias. The patient was seen at bedside with Dr. Fitch from pain management. [facility] Medical History Colitis Home Medications ?Medication ?Instructions ?Recorded ?Last Taken ?Type NK 07/20/24 Unknown History Allergy/AdvReac Type Severity Reaction Status Date / Time No Known Allergies Allergy Verified 07/20/24 11:03 Social History household members: spouse Smoking Status: Former smoker Vital Signs Vital Signs Vital Signs: 07/20/24 13:56 07/20/24 15:03 07/20/24 16:35 Temperature 98.7 F 97.4 F L Temperature Source Oral Pulse Rate 55 L 89 61 Pulse Strength Respiratory Rate 18 16 18 Respiratory Effort Respiratory Depth Respiratory Pattern Blood Pressure 122/99 H 137/103 H 128/97 H Blood Pressure Mean 106 114 107 Blood Pressure Source Monitor Blood Pressure Position Semi-Fowlers Blood Pressure Location Left Arm Pulse Ox 100 100 95 Oxygen Delivery Method Room Air Room Air 07/20/24 20:37 07/20/24 20:37 07/20/24 20:37 Temperature 98.1 F Temperature Source Oral Pulse Rate 65 Pulse Strength Normal (2+) Respiratory Rate 16 Respiratory Effort Normal Respiratory Depth Normal Respiratory Pattern Normal Blood Pressure 130/90 H Blood Pressure Mean 103 Blood Pressure Source Monitor Blood Pressure Position Semi-Fowlers Blood Pressure Location Right Arm Pulse Ox 98 Oxygen Delivery Method Room Air Room Air 07/20/24 23:55 07/21/24 02:34 07/21/24 05:19 Temperature 98.5 F 97.6 F L Temperature Source Oral Oral Pulse Rate 55 L 61 Pulse Strength Respiratory Rate 16 16 Respiratory Effort Normal Respiratory Depth Normal Respiratory Pattern Normal Blood Pressure 122/87 H 119/83 H Blood Pressure Mean 98 95 Blood Pressure Source Monitor Monitor Blood Pressure Position Semi-Fowlers Semi-Fowlers Blood Pressure Location Left Arm Left Arm Pulse Ox 100 100 Oxygen Delivery Method Room Air Room Air Room Air 07/21/24 07:51 07/21/24 07:54 07/21/24 08:21 Temperature 97.8 F Temperature Source Oral Pulse Rate 70 Pulse Strength Normal (2+) Respiratory Rate 18 Respiratory Effort Respiratory Depth Respiratory Pattern Blood Pressure 135/99 H Blood Pressure Mean 111 Blood Pressure Source Monitor Blood Pressure Position Semi-Fowlers Blood Pressure Location Left Arm Pulse Ox 99 98 Oxygen Delivery Method Room Air Room Air Weight Weight: 156 lb Body Mass Index (BMI) 23.0 Physical Exam Narrative Neurological examination of the lower extremity shows 5X5 power. Normal sensation across all dermatomes. There is a midline tenderness with palpation. Const alert, oriented x3 and no apparent distress Lab / Micro Data 07/21/24 05:51 07/21/24 05:51 Labs: Laboratory Results - last 24 hr 07/20/24 11:35: WBC 7.5, RBC 5.47, Hgb 16.8 H, Hct 45.8, MCV 83.7, MCH 30.7, M CHC 36.7 H, RDW Std Deviation 43.8, RDW Coeff of Clary 14.9 H, Plt Count 202, MPV 9.3, Immature Gran % (Auto) 0.300, Neut % (Auto) 50.5, Lymph % (Auto) 34.0, [place] % (Auto) 11.7 H, Eos % (Auto) 2.3, Baso % (Auto) 1.2 H, Absolute Neuts (auto) 3.8, Absolute Lymphs (auto) 2.54, Nucleated RBC % 0, Sodium 140, Potassium 4.2, Chloride 105, Carbon Dioxide 25.2, Anion Gap 10, BUN 13, Creatinine 1.16, Estim Creat Clear Calc 76.19, Est GFR (MDRD) Non-Af 77, BUN/Creatinine Ratio 11.4, Glucose 74, Calcium 9.2 07/20/24 13:10: Urine Color Yellow, Urine Clarity Clear, Urine pH 7.0, Ur Specific [place] 1.010, Urine Protein 30 H, Urine Glucose (UA) Normal, Urine Ketones 5 H, Urine Occult Blood Negative, Urine Nitrite Negative, Urine Bilirubin 1 H, Urine Urobilinogen 4 H, Ur Leukocyte Esterase 25 H, Urine RBC 0 SEEN, Urine WBC 0-5 SEEN, Ur Squamous Epith Cells 0 SEEN, Urine Bacteria 0 SEEN, Urine Mucus 1+ 07/21/24 05:51: WBC 6.4, RBC 5.59, Hgb 17.5 H, Hct 46.9, MCV 83.9, MCH 31.3, M CHC 37.3 H, RDW Std Deviation 43.3, RDW Coeff of Clary 14.6, Plt Count 196, MPV 9.8, Sodium 135, Potassium 4.8, Chloride 101, Carbon Dioxide 25.4, Anion Gap 9, BUN 19, Creatinine 1.27 H, Estim Creat Clear Calc 69.59, Est GFR (MDRD) Non-Af 69, BUN/Creatinine Ratio 15.0, Glucose 91, Calcium 8.7 Imaging Radiology Impression Lumbar Spine CT 07/20/24 12:06 IMPRESSION: Multilevel disc space narrowing as described with the neural foraminal stenosis more prominent on the left side. Reading Location: [facility] Assessment & Plan Assessment/Plan (1) Lumbar radiculopathy: PLAN: Plan CT lumbar showed multilevel degenerative changes. No acute fractures. Will order lumbar MRI. Plan is to have epidural steroid injections with Dr. Fitch from pain management. Documented by User: Dr. Nayan Ruiz MD 07/21/24 16:00 HPI Consult Data Date of Consult: 07/21/24 [facility] Medical History Colitis Home Medications ?Medication ?Instructions ?Recorded ?Last Taken ?Type NK 07/20/24 Unknown History Allergy/AdvReac Type Severity Reaction Status Date / Time No Known Allergies Allergy Verified 07/20/24 11:03 Social History household members: spouse Smoking Status: Former smoker Lab / Micro Data 07/21/24 05:51 07/21/24 05:51 Assessment & Plan Assessment/Plan (1) Lumbar radiculopathy: PLAN: Plan CT lumbar showed multilevel degenerative changes. No acute fractures. Will order lumbar MRI. Plan is to have epidural steroid injections with Dr. Fitch from pain management. Will review MRI once complete. Clinically appears to be having severe radiculopathy with positive straight leg raise test, difficulty with ambulation severe enough to require admission. Considering severity of radiculopathy and severe stress signs limiting activities of daily living, it is reasonable to obtain MRI. Patient was in agreement. Charges/Coding Visit Charges Inpatient E&M: 41074 Init Hosp L3
--- NOTE | 2024-07-21 11:34 | MRI_ITS ---
PROCEDURE: SPINE LUMBAR (ROUTINE) 07/21/2024 REASON FOR EXAM: PAIN WITH AMBULATION, RADICULOPATHY TECHNIQUE: Multiplanar and multisequence images were obtained without IV contrast administration. COMPARISON: 07/20/2024 CT. FINDINGS: Vertebral body heights are maintained. No significant abnormal marrow signal. L1-2: Right subarticular extruded disc extending 7 mm posteriorly and near completely effacing the right lateral recess. Moderate right neural foraminal stenosis. No significant left neural foraminal stenosis. L2-3: Mild disc bulging and facet arthropathy. Mild bilateral neural foraminal stenosis. Mild central stenosis. L3-4: Mild disc bulging and facet arthropathy. Mild central stenosis. Moderate bilateral neural foraminal stenosis. L4-5: Disc bulging and facet arthropathy resulting in [id number] central stenosis. Umqgqiwb-[id number]-heytpg bilateral neural foraminal stenosis. L5-S1: Disc bulging and facet arthropathy resulting in minimal central stenosis. [id number] bilateral neural foraminal stenosis. MRI/Spine Lumbar (Routine) IMPRESSION: Multilevel spondylosis. Details above. Reading Location: [place] [id number]
--- NOTE | 2024-07-21 13:25 | PN_ITS ---
Subjective Subjective Patient seen and examined with his nurse by his bedside. His was present. He said his back pain was much better and rated as about 3-4/10. He denied any numbness or tingling in his lower extremities or any urinary or fecal incontinence. Review of symptoms otherwise negative. Objective Data Objective Data Vital Signs: Vital Signs Temp Pulse Resp BP Pulse Ox O2 Del Method 97.8 F 70 18 135/99 H 98 Room Air 07/21/24 07:51 07/21/24 07:51 07/21/24 07:51 07/21/24 07:51 07/21/24 08:21 07/21/24 08:21 Oxygen Delivery Method Room Air Weight: 156 lb Body Mass Index (BMI) 23.0 Intake & Output: Intake and Output for Last 24 Hours 07/19/24 07/20/24 07/21/24 23:59 23:59 23:59 Intake Total 450 / 450 Balance 450 / 450 Lab / Micro Data 07/21/24 05:51 07/21/24 05:51 Labs: Laboratory Results - last 24 hr 07/20/24 13:10: Urine RBC 0 SEEN, Urine WBC 0-5 SEEN, Ur Squamous Epith Cells 0 SEEN, Urine Bacteria 0 SEEN, Urine Mucus 1+ 07/21/24 05:51: WBC 6.4, RBC 5.59, Hgb 17.5 H, Hct 46.9, MCV 83.9, MCH 31.3, M CHC 37.3 H, RDW Std Deviation 43.3, RDW Coeff of Clary 14.6, Plt Count 196, MPV 9.8, Sodium 135, Potassium 4.8, Chloride 101, Carbon Dioxide 25.4, Anion Gap 9, BUN 19, Creatinine 1.27 H, Estim Creat Clear Calc 69.59, Est GFR (MDRD) Non-Af 69, BUN/Creatinine Ratio 15.0, Glucose 91, Calcium 8.7 Physical Exam Const alert, oriented x3, no apparent distress and well nourished General Appearance: cooperative HEENT normocephalic, head/scalp atraumatic and moist oral mucous membranes Eyes PERRL and EOMs intact bilaterally Neck supple and no JVD Lymph Lymphatic: no lymphedema noted Resp normal respiratory effort, normal air movement and clear to auscultation bilaterally Cardio regular rate, regular rhythm, S1 normal heart sound, S2 normal heart sound and no murmurs GI normal to inspection, nondistended, normoactive bowel sounds, soft to palpation and non-tender Extremity General Extremity: no tenderness to palpation of joints or extremities Neuro no sensory deficits noted Neuro Narrative: straight leg raising test positive. Moves all extremities spontaneously Motor Exam: general weakness Psych thought process normal and cooperative Appearance: appropriate Assessment & Plan Assessment/Plan (1) Intractable low back pain: (2) Lumbar radicular pain: PLAN: Plan #Lumbar radiculopathy due to spinal stenosis * pain is much better today. * Lumbar CT showed multilevel disc space narrowing with neural foraminal stenosis more prominent on the left side. * PT OT on board. Fall precautions. Patient on p.o. Tylenol. Patient does not want to have any opiates at all. * Lumbar spine MRI ordered and pending * Orthopedics and pain management consulted. Await recommendations. * Will add on p.o. prednisone to help with the pain * Also on Toradol and flexeril for the pain. * #Nicotine dependence: Counseled to quit. Nicotine patch as needed DVT prophylaxis: SCDs Charges/Coding Visit Charges Inpatient E&M: 09424 Subs Hosp L2
[2024-07-21 14:32] VITALS: BP 121/88; PULSE 62; RESP 17; TEMP 37.2; O2SAT 98
[2024-07-21] MEDS: dexAMETHasone 4 MG Tablet PO (14:37)
[2024-07-21 20:46] VITALS: BP 129/104; PULSE 67; RESP 16; TEMP 36.4; O2SAT 98
[2024-07-21] MEDS: Ketorolac 15 MG/ML Vial IV (20:53)
[2024-07-21] MEDS: 0.9% Saline Lock 10 ML Syringe IV (20:53)
[2024-07-22] VITALS (10 sets, daily range): BP systolic 118–139; BP diastolic 80–103; PULSE 60–86; RESP 14–18; TEMP 36.4–36.8; O2SAT 97–100; BMI 23.2
[2024-07-22 06:02] LABS: Absolute Lymphocyte Count 1.74 X10^3/uL (0.83-4.51); Absolute Neutrophil Count 5.9 X10^3/uL (2.0-7.7); Basophil# 0.03 X10^3/uL; Basophil% 0.4 % (0-1); Hematocrit 47.8 % (40-54); Hemoglobin 17.7 g/dL (13.0-16.5); Lymphocyte # 1.74 X10^3/ul (0.83-4.51); Lymphocyte % 20.8 % (19-41); Mean Corpuscular Hgb 30.8 pg (27.0-32.0); Mean Corpuscular Volume 83.3 fL (80-94); Mean Platelet Vol. 9.8 fl (6.2-12.0); Monocyte% 8.4 % (0-10); NRBC Flagged by Analyzer 0 % (0-5); Neutrophil # 5.85 X10^3/uL (2.7-7.7); Neutrophil % 69.9 % (47-70); Platelet Count 209 K/mm3 (150-450); RBC Distribution Width CV 14.3 % (11.6-14.6); RBC Distribution Width SD 42.5 fl (35.1-43.9); Red Blood Count 5.74 M/mm3 (4.6-6.2); White Blood Count 8.4 K/mm3 (4.4-11.0)
[2024-07-22 07:03] LABS: Anion Gap 10 (5-15); BUN 19 mg/dL (4-19); Carbon Dioxide 20.5 mmol/L (21.0-32.0); Chloride 103 mmol/L (98-108); Creatinine, Serum 1.07 mg/dL (0.70-1.20); EST Glomerular Filtration Rate 85 (>60); Estimated Creatinine Clearance 82.59 ml/min (50-250); Glucose 101 mg/dL (70-99); Potassium 4.3 mmol/L (3.3-5.1); Sodium Level 134 mmol/L (133-145)
[2024-07-22] MEDS: Acetaminophen 500 MG Tablet 1000 MG PO ×2 (07:37→18:51)
[2024-07-22] MEDS: dexAMETHasone 4 MG Tablet PO (07:37)
--- NOTE | 2024-07-22 11:41 | CASEMGMT ---
MICHEAL CM into pt room to discuss dc planning. Pt to go for an injection today. Pt states he has no other form of insurance other than the [facility] benefit. Noted pt would like a walker and outpt PT from therapy notes. Pt states he will see if he can borrow a walker or buy from [employer] on his own d/t not having insurance. Pt was open to outpt therapy rx. Provided at this time and reviewed with pt local options for therapy. Pt states that he will schedule on his own as he does not know where he wants to go and will need to coordinate with his work schedule. Pt denies any further needs at this time.
--- NOTE | 2024-07-22 12:59 | PRE.ANES_ITS ---
ASA Classification* ASA Classification ASA Classification: 2 Assessment & Plan Anesthesia* Anesthesia Assessment Anesthesia Assessment: Discussed sedation and/or anesthesia options, risks, benefits, and alternatives with patient/parents/legal guardian/POA. Questions invited. The patient/parents/legal guardian/POA seems to understand and agrees to proceed with anesthesia plan. Reviewed the physical assessment, medical history, allergy history and patient home medications list prior to surgery/procedure/anesthetic and documented any changes. Performed airway and anesthesia risk assessments. Anesthesia Type Anesthesia Type: MAC Anesthesia Focused Assessment* Temperature: 98.2 F Pulse Rate: 60 Blood Pressure: 119/90 Respiratory Rate: 16 Pulse Ox: 97 Airway Assessment Mouth opens: >3 cm Mallampati Score: II Labs Anesthesia Preop lab: CBC WBC 8.4 K/mm3 (4.4-11.0) 07/22/24 05:45 07/22/24 RBC 5.74 M/mm3 (4.6-6.2) 07/22/24 05:45 07/22/24 Hgb 17.7 g/dL (13.0-16.5) H 07/22/24 05:45 5 Hct 47.8 % (40-54) 07/22/24 05:45 07/22/24 Plt Count 209 K/mm3 (150-450) 07/22/24 05:45 07/22/24 CHEMISTRY Potassium 4.3 mmol/L (3.3-5.1) 07/22/24 05:45 07/22/24 Sodium 134 mmol/L (133-145) 07/22/24 05:45 07/22/24 Magnesium 1.6 mg/dL (1.8-2.4) L 04/27/15 05:10 04/27/15 BUN 19 mg/dL (4-19) 07/22/24 05:45 07/22/24 Creatinine 1.07 mg/dL (0.70-1.20) 07/22/24 05:45 07/22/24 Glucose 101 mg/dL (70-99) H 07/22/24 05:45 07/22/24 POC Glucose 85 mg/dL (70-110) 03/27/16 11:53 03/27/16 COAG PT 13.2 SECONDS (11.7-14.9) 03/27/16 11:50 Pre-Assessment Diagnosis/Proposed Procedure Planned Operative Procedure(s): Epidural injection. Anesthesia History Anesthesia History - [employer]: Anesthesia History - [employer] Hx Hospitalization Any Problems With Anesthesia No 07/22/24 09:28 Cholinesterase deficiency No 07/22/24 09:28 You/Your Family Experience No 07/22/24 09:28 fever (hyperthermia) with Relationship Recent Exposure to Contagious No 07/22/24 09:28 Disease Does patient have nerve No 07/22/24 09:28 stimulator Patient instructed to have device shut off --Does patient have Pacemaker No 07/22/24 09:28 or ICD? When Was Last Pacemaker Check QUESTION #4 FULL TEXT: You/Your Family Experience fever (hyperthermia) with Anesthesia Last Oral Intake Last Oral intake: Last Oral Intake NPO since 00:00 07/22/24 09:28 Meds taken in AM with sips of Yes 07/22/24 09:28 water? Meds patient instructed to Decadron 0730 07/22/24 09:28 take am of surgery PONV PONV - [employer]: PONV - [employer] Female HX of Motion Sickness HX of N/V After Surgery Non-Smoker Duration of Surgery greater than 60 minutes Number of Risk Factors PONV Score Height & Weight Height & Weight: Anesthesia: Height & Weight Height 5 ft 9 in 07/22/24 09:28 Weight: 71.271 kg 07/22/24 09:28 Body Mass Index (BMI) 23.2 07/22/24 09:28 Respiratory Assessment Respiratory Assessment - [employer]: Respiratory Tract Infection Hx - [employer] Hx Respiratory Tract Infection No 07/22/24 09:28 STOP Sleep Apnea STOP Sleep Apnea - [employer]: STOP Sleep Apnea - [employer] Hx Hypertension Yes 07/21/24 13:39 Hx Sleep Apnea No 07/20/24 16:27 CPAP BIPAP Do you snore loudly (louder No 07/20/24 16:27 than talking or can be heard Do you often feel tired/ No 07/20/24 16:27 fatigued/ sleepy during daytime? Has anyone observed you stop No 07/20/24 16:27 breathing during sleep? STOP Results Negative 06/09/25 16:27 QUESTION #5 FULL TEXT : Do you snore loudly (louder than talking or can be heard through closed doors)? 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 confused, unrespo /Reproduction History /Reproductive History - [employer]: /Reproductive Hx- [employer] Hx Now No 07/22/24 09:28 Gestational Age (in weeks): EDC: Hx Hx Para Hx Section SAB No 07/22/24 09:28 Active Medications Active Medications: Current Medications Generic Name Dose Route Start Last Admin Trade Name Sergioq PRN Reason Stop Dose Admin Acetaminophen 1,000 mg 07/20/24 16:12 07/22/24 07:37 Acetaminophen 500 Mg Tablet PO 1,000 mg Q8 DOT Administration Cyclobenzaprine HCl 5 mg 07/20/24 16:12 Cyclobenzaprine Hcl 5 Mg Tablet PO TID PRN MUSCLE SPASM Dexamethasone 4 mg 07/21/24 14:00 07/22/24 07:37 Dexamethasone 4 Mg Tablet PO 4 mg DAILYCM DOT Administration Sodium Chloride 250 mls @ 15 mls/hr 07/20/24 16:13 IV .[id number] PRN Saline Flush Sodium Chloride 250 mls @ 15 mls/hr 07/20/24 16:13 IV .[id number] PRN Additional IVPB Infusion Ketorolac Tromethamine 15 mg 07/20/24 16:12 07/21/24 20:53 Ketorolac 15 Mg/Ml Vial IV 07/23/24 13:47 15 mg Q6H PRN PRN Administration Pain Score 4-10 Lidocaine 1 patch 07/20/24 16:12 07/22/24 08:27 Lidocaine 5% Patch TOPICAL Not Given DAILY DOT Protocol Melatonin 3 mg 07/20/24 16:12 07/20/24 23:36 Melatonin 3 Mg Tablet PO 3 mg QHS PRN PRN Administration INSOMNIA Ondansetron HCl 4 mg 07/20/24 16:12 Ondansetron 4 Mg/2 Ml Vial IV Q8H PRN PRN NAUSEA/VOMITING Sodium Chloride 10 - 40 ml 07/20/24 16:13 07/21/24 20:53 0.9% Saline Lock 10 Ml Syringe IV 10 ml UD PRN Administration SALINE FLUSH PFSH Medical History Colitis Home Medications ?Medication ?Instructions ?Recorded ?Last Taken ?Type NK 07/20/24 Unknown History Allergy/AdvReac Type Severity Reaction Status Date / Time No Known Allergies Allergy Verified 07/20/24 11:03 Social History household members: spouse Smoking Status: Former smoker Review of Systems (Anesthesia) ROS Narrative System reviewed and no additional complaints, except as documented.
--- NOTE | 2024-07-22 13:48 | PN_ITS ---
Subjective Subjective Patient seen and examined. He said his pain was much better and he had no active complaints. Review of systems otherwise negative. He has remained hemodynamically stable. He is for epidural pain shot today by spine surgery. Objective Data Objective Data Vital Signs: Vital Signs Temp Pulse Resp BP Pulse Ox O2 Del Method 98.2 F 60 16 119/90 H 97 Room Air 07/22/24 12:59 07/22/24 12:59 07/22/24 12:59 07/22/24 12:59 07/22/24 12:59 07/22/24 09:28 Oxygen Delivery Method Room Air Weight: 157 lb 2 oz Body Mass Index (BMI) 23.2 Intake & Output: Intake and Output for Last 24 Hours 07/20/24 07/21/24 07/22/24 23:59 23:59 23:59 Intake Total 450 / 450 480 / 480 Balance 450 / 450 480 / 480 Lab / Micro Data 07/22/24 05:45 07/22/24 05:45 Labs: Laboratory Results - last 24 hr 07/22/24 05:45: WBC 8.4, RBC 5.74, Hgb 17.7 H, Hct 47.8, MCV 83.3, MCH 30.8, M CHC 37.0 H, RDW Std Deviation 42.5, RDW Coeff of Clary 14.3, Plt Count 209, MPV 9.8, Immature Gran % (Auto) 0.500, Neut % (Auto) 69.9, Lymph % (Auto) 20.8, [place] % (Auto) 8.4, Eos % (Auto) 0.0, Baso % (Auto) 0.4, Absolute Neuts (auto) 5.9, Absolute Lymphs (auto) 1.74, Nucleated RBC % 0, Sodium 134, Potassium 4.3, Chloride 103, Carbon Dioxide 20.5 L, Anion Gap 10, BUN 19, Creatinine 1.07, Estim Creat Clear Calc 82.59, Est GFR (MDRD) Non-Af 85, BUN/Creatinine Ratio 18.0, Glucose 101 H, Calcium 9.0 Radiography Diagnostic Testing: Radiology Impression Lumbar Spine MRI 07/21/24 11:34 IMPRESSION: Multilevel spondylosis. Details above. Reading Location: [place] [id number] Physical Exam Const alert, oriented x3, no apparent distress, average body habitus, healthy appearing and well nourished General Appearance: cooperative, well kempt and well developed HEENT normocephalic, head/scalp atraumatic, hearing grossly normal bilaterally, nasal mucous membranes and turbinates normal and moist oral mucous membranes Eyes PERRL, EOMs intact bilaterally and conjunctivae normal Neck full ROM, supple and no JVD Lymph Lymphatic: no lymphedema noted Chest inspection of chest normal Resp normal respiratory effort, normal air movement, no use of accessory muscles and clear to auscultation bilaterally Cardio regular rate, regular rhythm, S1 normal heart sound, S2 normal heart sound, no murmurs and peripheral pulses 2+ throughout GI normal to inspection, nondistended, normoactive bowel sounds, soft to palpation, non-tender and non-distended Extremity normal to inspection, normal capillary refill and no pedal edema General Extremity: no tenderness to palpation of joints or extremities Skin no rashes or lesions noted General Skin Exam: no breakdown Neuro CN's II-XII intact bilaterally, moves all extremities, no focal motor deficits and no sensory deficits noted Speech: speech normal Motor Exam: strength 5/5 throughout and general weakness Psych mental status grossly normal, thought process normal and cooperative Appearance: appropriate Assessment & Plan Assessment/Plan (1) Intractable low back pain: (2) Lumbar radicular pain: PLAN: Plan #Lumbar radiculopathy due to spinal stenosis * pain is much better today. * Lumbar CT showed multilevel disc space narrowing with neural foraminal stenosis more prominent on the left side. * PT OT on board. Fall precautions. Patient on p.o. Tylenol. Patient does not want to have any opiates at all. * Lumbar spine MRI showed multilevel spondylosis * Orthopedics and pain management consulted. Await recommendations. * Will add on p.o. prednisone to help with the pain * Also on Toradol and flexeril for the pain. * For epidural spinal shots today by spine surgery * #Nicotine dependence: Counseled to quit. Nicotine patch as needed DVT prophylaxis: SCDs Disposition: For possible discharge after he has the epidural steroid shot today Charges/Coding Visit Charges Inpatient E&M: 00826 Subs Hosp L2
[2024-07-22] MEDS: Lactated Ringers 1,000 ML 15 ML IV (15:08)
--- NOTE | 2024-07-22 15:30 | RAD_ITS ---
PROCEDURE: LUMBAR SPINE 2 OR 3 VIEWS 07/22/2024 REASON FOR EXAM: THORACIC EPIDURAL BLOCK TECHNIQUE: Fluoroscopy. COMPARISON: 07/21/2024 MRI. FINDINGS: Fluoroscopic images for 35.5 seconds. 13.37 mGy. No evidence of acute fluoroscopic complication. See procedure report for full details. RAD/Lumbar Spine 2 or 3 Views IMPRESSION: As above. Reading Location: [id number]
[2024-07-22] MEDS: dexAMETHasone 4 MG/ML Vial ×2 (15:39→15:40)
--- NOTE | 2024-07-22 15:55 | PCM.POST.ANE ---
Anesthesia: Postop Eval I Current Vital Signs Temperature: 97.6 F Pulse Rate: 77 Blood Pressure: 121/93 Respiratory Rate: 18 Pulse Ox: 99 Assessment Airway patent: Yes Spontaneous unlabored respirations: Yes nausea: No Vomiting: No Anesthesia Complication: No Fluid Hydration Crystalloid volume administer (ml): 100 Total IV fluid infused: 100 Progress Note Anesthesia document: Postop Eval 1 completed: Yes
--- NOTE | 2024-07-22 16:45 | DCINST_ITS ---
Discharge Instructions Diet Discharge Diet: No restrictions DC O2, CPAP, BIPAP needs Home O2 Discharge instructions: No Dressing / Incision Discharge Activity: Return to Normal Activity Weight Bearing Status: Weight bearing as tolerated Dressing / Incision Call your doctor if you observe: Fever of 101 or Higher, Shortness of breath, Dizziness, Swelling in the ankles, Chest pain and Uncontrolled pain Follow Up Care Test Results: Test results from this visit will be discussed in further detail at your follow- up appointment, if applicable. Discharge Plan Admission Admit Date/Time: 07/20/24 13:45 Primary Reason for Your Visit: back pain Attending Provider: Tonya Momin Primary Care Provider: Aj Colindres Consulting Providers: Nayan Ruiz; Nidhi Roberts; Dom Rodríguez Instructions Patient Instructions: What Is Spinal Stenosis? Discharge Orders/Prescriptions Prescriptions: New cyclobenzaprine 5 mg Tablet 5 mg PO TID PRN (Reason: Muscle Spasm) Qty: 30 1RF acetaminophen 325 mg tablet 650 mg PO Q6H PRN (Reason: pain) Qty: 30 1RF Referrals / Follow Up: Nidhi Roberts MD [Med Staff - Active Staff] - Within 2 Weeks Aj Colindres MD [Primary Care Provider] - Within 1 Week Disposition Disposition (needs filled in before D/C Order can be placed): Home, Self Care
--- NOTE | 2024-07-22 16:46 | DS.PCM_ITS ---
Providers Date of Admission: 07/20/24 Date of Discharge: 07/22/24 Primary Care Physician: Dr. Aj Colindres MD Consultations 07/20/24 16:12 Consult: Orthopedics Routine Consulting Provider: Nayan Ruiz Reason for Consult: acute on chronic low back pain w/ radiculopathy EMERGENT Consult: No Notified: Yes Date Notified: 07/20/24 Time Notified: 16:18 Method of Notification: Text Consult: Pain Management Routine Consulting Provider: Nidhi Roberts Reason for Consult: acute on chronic low back pain w/ radiculopathy EMERGENT Consult: No Notified: Yes Date Notified: 07/20/24 Time Notified: 16:22 Method of Notification: Answering Service Reason For Visit: INTRACTABLE LOW BACK PAIN W/ INABILITY TO AMBULATE Diagnosis Discharge Diagnosis (1) Intractable low back pain: Status: Acute Code(s): M54.59 - Other low back pain (2) Lumbar radicular pain: Status: Acute Code(s): M54.16 - Radiculopathy, lumbar region Plan #Lumbar radiculopathy due to spinal stenosis * pain is much better today. * Lumbar CT showed multilevel disc space narrowing with neural foraminal stenosis more prominent on the left side. * PT OT on board. Fall precautions. Patient on p.o. Tylenol. Patient does not want to have any opiates at all. * Lumbar spine MRI showed multilevel spondylosis * Orthopedics and pain management consulted. Await recommendations. * Will add on p.o. prednisone to help with the pain * Also on Toradol and flexeril for the pain. * For epidural spinal shots today by spine surgery * #Nicotine dependence: Counseled to quit. Nicotine patch as needed DVT prophylaxis: SCDs Disposition: For possible discharge after he has the epidural steroid shot today Medications at Discharge Home Medications acetaminophen 325 mg tablet 650 mg (2 x 325 mg) PO Q6H PRN pain #30 tabs 07/22/24 cyclobenzaprine 5 mg tablet 5 mg PO TID PRN Muscle Spasm #30 tabs 07/22/24 Hospital Course Operations None Procedures - (epidural steroid shot) Summary of Care Provided Minutes Spent on Discharge: 42 Hospital Course: Patient is a 49-year-old male with past medical history as outlined was admitted to the ED on 07/20/2024 with complaint of low back pain with right to colopathy and difficulty with ambulation. He had had lower back issues in the past but no severe lower back pain but this current episode started about 3 weeks prior to admission. He has been taking [id number] pain meds but this was not helping so he came into the ED. Pain was worse in his right lower back and paraspinal muscles and radiated into his buttock and the back of his leg down to his ankle. He denied any bladder or bowel incontinence. He had been seen in the ED on 07/17/2024 for similar symptoms and sent home on a short course of oxycodone and acetaminophen as well as naproxen and Valium. However his symptoms worsen and he also had significant GI upset with the pain meds so he came back to the ED. CT of the lumbar spine showed multilevel disc space narrowing with neuroforaminal stenosis more prominent on the left side. He was admitted to be managed for debility due to lumbar radiculopathy from spinal stenosis. Orthopedic surgery and pain management were consulted. He had an MRI which showed multilevel spondylosis and moderate to severe bilateral neural foraminal stenosis of the lumbar spine. He had an epidural steroid pain shot on 07/22/2024 by pain management. Patient tolerated the procedure well and remained stable. He subsequently requested to be discharged home. He was therefore discharged on 07/22/2024. He is follow-up with his primary care doctor within 1 to 2 weeks. He was discharged on p.o. Tylenol. Patient did not want to be on any opioids. Pain patient seen and examined on the day of discharge. He had no complaints and was willing to go for the pain shots. He said his pain had improved significantly. Review of symptoms otherwise negative. Labs and vitals reviewed. Home medication reviewed and reconciled. Physical Exam Const alert, oriented x3, no apparent distress, average body habitus, healthy appearing and well nourished General Appearance: cooperative and comfortable Orientation / Consciousness: awake HEENT normocephalic, head/scalp atraumatic, hearing grossly normal bilaterally and moist oral mucous membranes Eyes EOMs intact bilaterally and conjunctivae normal Neck full ROM and supple Lymph Lymphatic: no lymphedema noted Resp normal respiratory effort, normal air movement and clear to auscultation bilaterally Cardio regular rate, regular rhythm, S1 normal heart sound and S2 normal heart sound GI normal to inspection, nondistended, normoactive bowel sounds, soft to palpation, non-tender and non-distended Back/Spine no CVA tenderness Extremity normal to inspection, full ROM, normal capillary refill and no pedal edema General Extremity: no tenderness to palpation of joints or extremities Skin no rashes or lesions noted General Skin Exam: no breakdown Neuro oriented x3, CN's II-XII intact bilaterally, moves all extremities, no focal motor deficits and no sensory deficits noted Sensorium / Orientation: awake and alert Speech: speech normal Motor Exam: strength 5/5 throughout and general weakness Psych mental status grossly normal, thought process normal and cooperative Appearance: appropriate Weight / BMI Weight Weight: 157 lb 2 oz Body Mass Index (BMI) 23.2 ABG / Lab / Microbiology Data 07/22/24 05:45 07/22/24 05:45 Laboratory: Laboratory Results - last 24 hr 07/22/24 05:45: WBC 8.4, RBC 5.74, Hgb 17.7 H, Hct 47.8, MCV 83.3, MCH 30.8, M CHC 37.0 H, RDW Std Deviation 42.5, RDW Coeff of Clary 14.3, Plt Count 209, MPV 9.8, Immature Gran % (Auto) 0.500, Neut % (Auto) 69.9, Lymph % (Auto) 20.8, [place] % (Auto) 8.4, Eos % (Auto) 0.0, Baso % (Auto) 0.4, Absolute Neuts (auto) 5.9, Absolute Lymphs (auto) 1.74, Nucleated RBC % 0, Sodium 134, Potassium 4.3, Chloride 103, Carbon Dioxide 20.5 L, Anion Gap 10, BUN 19, Creatinine 1.07, Estim Creat Clear Calc 82.59, Est GFR (MDRD) Non-Af 85, BUN/Creatinine Ratio 18.0, Glucose 101 H, Calcium 9.0 Radiography Diagnostic Testing: Radiology Impression Lumbar Spine MRI 07/21/24 11:34 IMPRESSION: Multilevel spondylosis. Details above. Reading Location: [place] [id number] D/C Instructions Discharge Diet: No restrictions Discharge Activity: Return to Normal Activity Weight Bearing Status: Weight bearing as tolerated Call your doctor if you observe: Fever of 101 or Higher, Shortness of breath, Dizziness, Swelling in the ankles, Chest pain and Uncontrolled pain DC O2, CPAP, BIPAP Needs Home O2 Discharge instructions: No Meaningful Use Info Meaningful Use Meaningful Use Diagnoses (Choose all that apply): None applicable Ischemic Stroke Statin Dosing Therapy Reference: STATIN DOSE THERAPY REFERENCE: * Patients > 75 years receive moderate or high dose statin therapy. * Patients 75 years or YOUNGER should receive HIGH intensity statin dose unless contraindicated. You will be required to document reason for non-treatment if statin daily dose does not meet guidelines. HIGH DOSE STATIN THERAPY DAILY Atorvastatin > than or = to 40 mg Rosuvastatin > than or = to 20 mg Amlodipine + Atorvastatin > than or = to 2.5/40 mg Ezetimibe + Simvastatin 10/80 mg Simvastatin 80mg Discharge Plan Admission Admit Date/Time: 07/20/24 13:45 Primary Reason for Your Visit: back pain Attending Provider: Tonya Momin Primary Care Provider: Aj Colindres Consulting Providers: Nayan Ruiz; Nidhi Roberts; Dom Rodríguez Instructions Patient Instructions: What Is Spinal Stenosis? Discharge Orders/Prescriptions Prescriptions: New cyclobenzaprine 5 mg Tablet 5 mg PO TID PRN (Reason: Muscle Spasm) Qty: 30 1RF acetaminophen 325 mg tablet 650 mg PO Q6H PRN (Reason: pain) Qty: 30 1RF Referrals / Follow Up: Nidhi Roberts MD [Med Staff - Active Staff] - Within 2 Weeks Aj Colindres MD [Primary Care Provider] - Within 1 Week Disposition Disposition (needs filled in before D/C Order can be placed): Home, Self Care Charges/Coding Visit Charges Inpatient E&M: [id number] Disch Hosp >30min
--- NOTE | 2024-07-22 16:51 | POSTOPAN2_ITS ---
Anesthesia Postop Eval I Sum Postop Eval Completion status Anesthesia document: Postop Eval 1 completed: Yes Anesthesia Postop Eval I Summary Anesthesia Postop Eval I Summary: Anesthesia Postop Eval I: Assessment Summary Airway patent Yes 07/22/24 15:55 TECHNICAL TESTING [email or web address].[email or web address] Spontaneous unlabored Yes 07/22/24 15:55 TECHNICAL TESTING ENGINEER.CSIR respirations Mental status nausea No 07/22/24 15:55 TECHNICAL TESTING ENGINEER.CSIR Vomiting No 07/22/24 15:55 TECHNICAL TESTING ENGINEER.CSIR Anesthesia Postop Eval I: Fluid Summary Crystalloid volume administer 100 07/22/24 15:55 TECHNICAL TESTING ENGINEER.CSIR (ml) Colloids volume administered ( ml) Blood Product volume administered (ml) Total IV fluid infused 100 07/22/24 15:55 TECHNICAL TESTING ENGINEER.CSIR Anesthesia Postop Eval I: Summary Notes Anesthesia Complication No 07/22/24 15:55 TECHNICAL TESTING ENGINEER.CSIR Anesthesia Complication Comment: Post-operative progress note Anesthesia: Postop Eval II Evaluation Mental status: Awake Pain Level: 3 nausea: No Vomiting: No
--- NOTE | 2024-07-22 16:51 | PCM.POSTANE2 ---
Anesthesia Postop Eval I Sum Postop Eval Completion status Anesthesia document: Postop Eval 1 completed: Yes Anesthesia Postop Eval I Summary Anesthesia Postop Eval I Summary: Anesthesia Postop Eval I: Assessment Summary Airway patent Yes 07/22/24 15:55 PENCIL MAKER.[email or web address] Spontaneous unlabored Yes 07/22/24 15:55 PENCIL MAKER.CSIR respirations Mental status nausea No 07/22/24 15:55 PENCIL MAKER.CSIR Vomiting No 07/22/24 15:55 PENCIL MAKER.CSIR Anesthesia Postop Eval I: Fluid Summary Crystalloid volume administer 100 07/22/24 15:55 PENCIL MAKER.CSIR (ml) Colloids volume administered ( ml) Blood Product volume administered (ml) Total IV fluid infused 100 07/22/24 15:55 PENCIL MAKER.CSIR Anesthesia Postop Eval I: Summary Notes Anesthesia Complication No 07/22/24 15:55 PENCIL MAKER.CSIR Anesthesia Complication Comment: Post-operative progress note Anesthesia: Postop Eval II Evaluation Mental status: Awake Pain Level: 3 nausea: No Vomiting: No
--- NOTE | 2024-07-22 17:51 | PCM.OPRPT ---
Problems Associated Problem List Diagnoses (1) Lumbar radiculopathy: Operative Report (Standard) Operative Information Date of Procedure: 07/22/24 Pre-Operative Diagnosis: Lumbar radiculopathy Post-Operative Diagnosis: Same Surgery/Procedure Performed: Right L1-L2 and L5-S1 Transforaminal Epidural steroid injections cigarette packer: No Type of Anesthesia: Sedation,Conscious RN Documented Start/Stop Times: Operation Date: 07/22/24 14:05 Case Time Into Pre-Op 07/22/24 12:45 Anesthesia Start 07/22/24 15:18 Into Room 07/22/24 15:18 Procedure Start 07/22/24 15:30 Procedure End 07/22/24 15:45 Anesthesia End 07/22/24 15:51 Out of Room 07/22/24 15:51 Into Recovery 07/22/24 15:52 Out of Recovery 07/22/24 16:11 Procedure Start Time: 15:30 Procedure Stop Time: 15:45 Select all DRAINS/GRAFTS/IMPLANTS that apply: None Estimated Blood Loss: nil Specimen collected: No Description of surgery: The patient was admitted to the preoperative area. Vital signs were checked and the patient was moved to the procedure area and placed in the prone position. Standard monitors were applied. Sterile prep and drape was performed in a regular manner. Using fluoroscopic guidance, the required levels were identified under AP and oblique views. Local anesthesia was administered using 25g needle using Lidocaine 1% to anesthetize the skin and subcutaneous tissue. A 22-gauge spinal needle was placed under fluoroscopic guidance until reaching the 6 o`clock position of the pedicle above the desired foramen, the needle was gradually walked down to the upper portion of the desired foramen, and the needle was then slightly advanced into the foramen. The position was confirmed with fluoroscopy using AP lateral and oblique views as required. Contrast material, Omnipaque 1cc per each level, was injected under fluoroscopic guidance via extension tubing and showed appropriate spread without evidence of vascular uptake. Negative blood and CSF aspiration was confirmed. The same procedure was repeated at each desired level. After confirmation of needles position, a mixture of 4 cc Bupivacaine 0.25% and 8 mg of dexamethason was injected and divided between the levels. The patient tolerated the procedure well. [place] were removed intact. The patient was cleansed and Band-Aid was applied. Surgical Findings: n/a Complications Complications: No
== END 2024-07-22 19:15 | disposition home or self-care (01) ==
LOC: ED 12:34 → MS3 15:18
PROVIDERS: Anesthesiology; Admitting Provider Hospitalist; Emergency Provider Emergency Medicine; PCP Family Medicine; Visit Provider Student in an Organized Health Care Education/Training Program
PROC: 3E0S3BZ Introduction of Anesthetic Agent into Epidural Space, Percutaneous Approach (ICD-10-PCS; CPT 64483; principal; 2024-07-22 14:00)
DX: M47.26 Other spondylosis with radiculopathy, lumbar region (principal); R26.2 Difficulty in walking, not elsewhere classified; M48.061 Spinal stenosis, lumbar region without neurogenic claudication; R53.81 Other malaise; F17.210 Nicotine dependence, cigarettes, uncomplicated; G89.29 Other chronic pain
CPT/HCPCS: 64483; 36415; 64490; 72100; 72131; 72148; 80048; 81001; 85025; 85027; 96372; 96374; 96376; 97161; 97165; 99221; 99284; A4216; G0378; J2405